=== PATIENT | female | born 1965 | race African-American/Black ===

== ENCOUNTER 2023-05-16 14:53 | Outpatient (CLI) | payer BC, SELFPAY ==
[2023-05-16 20:13] LABS: Hematocrit 38.8 % (37.0-47.0); Hemoglobin 12.5 g/dL (12.0-15.0); Mean Corpuscular HGB Conc 32.2 g/dl (32-36); Mean Corpuscular Hemoglobin 29.5 pg (26-34); Mean Corpuscular Volume 91.5 fl (80-100); Mean Platelet Volume 9.7 fl (7.4-10.4); Platelet Count Result 323 k/mm3 (150-375); Red Blood Count 4.24 M/mm3 (4.2-5.4); Red Cell Distribution Width 13.8 % (11.5-14.5); White Blood Count 6.4 K/mm3 (4.5-10.0)
[2023-05-16 20:33] LABS: Alanine Aminotransferase 22 U/L (6-35); Albumin Level 4.4 g/dL (3.5-5.1); Alkaline Phosphatase 84 U/L (38-126); Anion Gap 7 mmol/L (8-16); Aspartate Amino Transferase 27 U/L (14-36); Bilirubin,Total 0.8 mg/dL (0.2-1.3); Blood Urea Nitrogen 10 mg/dL (7-17); Calcium 9.5 mg/dL (8.4-10.2); Carbon Dioxide 28 mmol/L (22-30); Chloride 103 mmol/L (98-107); Cholesterol 276 mg/dL (0-200); Estimated Glomerular Filt Rate > 60; Glucose 85 mg/dL (65-110); HDL Direct 55 mg/dL; Potassium 4.2 mmol/L (3.4-5.0); Sodium 138 mmol/L (137-145); Triglycerides 84 mg/dL (<150)
[2023-05-16 20:43] LABS: LDL Cholesterol Direct 163 mg/dL
[2023-05-16 22:52] LABS: Hemoglobin A1C 5.7 % (<5.7)
[2023-05-19 18:48] LABS: H pylori, Urea Breath DETECTED (NOT DETECTED)
== END 2023-05-16 14:54 | disposition home or self-care (01) ==
LOC: ANHBWCLAB 14:59
PROVIDERS: PCP Family Medicine; Visit Provider Family Medicine
DX: D64.9 Anemia, unspecified (principal); E78.5 Hyperlipidemia, unspecified; G47.30 Sleep apnea, unspecified; Z98.890 Other specified postprocedural states; A04.8 Other specified bacterial intestinal infections
CPT/HCPCS: 36415; 80053; 80061; 83013; 83036; 85027

== ENCOUNTER 2023-08-18 12:03 | Outpatient (CLI) | payer BC, SELFPAY ==
[2023-08-18 18:56] LABS: Alanine Aminotransferase 25 U/L (6-35); Albumin Level 4.2 g/dL (3.5-5.1); Alkaline Phosphatase 83 U/L (38-126); Anion Gap 3 mmol/L (8-16); Aspartate Amino Transferase 45 U/L (14-36); Bilirubin,Total 0.6 mg/dL (0.2-1.3); Blood Urea Nitrogen 11 mg/dL (7-17); Calcium 9.8 mg/dL (8.4-10.2); Carbon Dioxide 32 mmol/L (22-30); Chloride 102 mmol/L (98-107); Estimated Glomerular Filt Rate > 60; Glucose 93 mg/dL (65-110); Potassium 4.2 mmol/L (3.4-5.0); Sodium 137 mmol/L (137-145)
[2023-08-18 19:17] LABS: Hematocrit 43.4 % (37.0-47.0); Hemoglobin 13.4 g/dL (12.0-15.0); Mean Corpuscular HGB Conc 30.9 g/dl (32-36); Mean Corpuscular Hemoglobin 29.2 pg (26-34); Mean Corpuscular Volume 94.6 fl (80-100); Mean Platelet Volume 9.7 fl (7.4-10.4); Platelet Count Result 296 k/mm3 (150-375); Red Blood Count 4.59 M/mm3 (4.2-5.4); Red Cell Distribution Width 13.7 % (11.5-14.5); White Blood Count 5.4 K/mm3 (4.5-10.0)
[2023-08-18 19:21] LABS: Appearance Urine Clear (Clear); Bilirubin Urine Negative (Negative); Blood Urine Negative (Negative); Color Urine Yellow (Yellow); Glucose Urine UA Negative (Negative); Ketones Urine Negative (Negative); Leukocyte Esterase Ur Negative LEU/UL (NEGATIVE); Nitrate Urine Negative (Negative); Protein Urine Negative (Negative); Specific Grav Ur 1.014 (1.001-1.035); Urobilinogen Urine 0.2 mg/dL (<2.0)
[2023-08-18 19:25] LABS: Add Urine Microscopic? NO
[2023-08-18 19:29] LABS: Hemoglobin A1C 6.1 % (<5.7)
== END 2023-08-18 12:04 | disposition home or self-care (01) ==
LOC: ANHBWCLAB 12:05
PROVIDERS: PCP Family Medicine; Visit Provider Family Medicine
DX: R73.03 Prediabetes (principal); D64.9 Anemia, unspecified; E66.9 Obesity, unspecified; E78.5 Hyperlipidemia, unspecified; G89.29 Other chronic pain; G47.30 Sleep apnea, unspecified
CPT/HCPCS: 36415; 80053; 81003; 83036; 84439; 84443; 85027

== ENCOUNTER 2024-04-02 09:58 | Outpatient (CLI) | payer BC, SELFPAY ==
[2024-04-02 18:24] LABS: Hematocrit 41.9 % (37.0-47.0); Hemoglobin 13.4 g/dL (12.0-15.0); Mean Corpuscular Hemoglobin 30.5 pg (26-34); Mean Corpuscular Volume 95.2 fl (80-100); Mean Platelet Volume 9.8 fl (7.4-10.4); Platelet Count Result 284 k/mm3 (150-375); White Blood Count 4.8 K/mm3 (4.5-10.0)
[2024-04-02 19:01] LABS: Alanine Aminotransferase 19 U/L (6-35); Albumin Level 4.5 g/dL (3.5-5.1); Alkaline Phosphatase 73 U/L (38-126); Anion Gap 11 mmol/L (4-12); Aspartate Amino Transferase 58 U/L (14-36); Bilirubin,Total 0.8 mg/dL (0.2-1.3); Blood Urea Nitrogen 15 mg/dL (7-17); Calcium 9.7 mg/dL (8.4-10.2); Carbon Dioxide 25 mmol/L (22-30); Chloride 103 mmol/L (98-107); Estimated Glomerular Filt Rate > 60; Glucose 84 mg/dL (65-110); Potassium 4.4 mmol/L (3.4-5.0); Sodium 139 mmol/L (137-145)
[2024-04-02 19:45] LABS: Vitamin D 25 Hydroxy 25.3 ng/mL
== END 2024-04-02 09:59 | disposition home or self-care (01) ==
PROVIDERS: PCP Family Medicine; Visit Provider Family Medicine
DX: D64.9 Anemia, unspecified (principal); E66.9 Obesity, unspecified; E78.5 Hyperlipidemia, unspecified; G47.30 Sleep apnea, unspecified; G47.33 Obstructive sleep apnea (adult) (pediatric); G89.29 Other chronic pain; R73.03 Prediabetes
CPT/HCPCS: 36415; 80053; 82306; 85027

== ENCOUNTER 2024-04-10 09:41 | Outpatient (CLI) | payer BC, SELFPAY ==
--- NOTE | ~2024-04-10 | US_ITS ---
EXAMINATION: US abdomen limited DATE: 04/10/2024 09:58 INDICATION: Abnormal levels of liver transaminases. TECHNIQUE: Multiple grayscale and Doppler ultrasound images of the abdomen were obtained. COMPARISON: None FINDINGS: The visualized portions of the head, body, and tail of the pancreas are normal. The liver i s normal without focal lesion. No liver surface nodularity. There is normal flow in main portal vein. The gallbladder is normal in size. No gallstones or gallbladder wall thickening. There is no sonogra phic Shi's sign. The common duct is normal and measures 3 mm. IMPRESSION: 1. Normal right upper quadrant ultrasound. Reviewed, dictated and finalized at location A.
== END 2024-04-10 09:42 | disposition home or self-care (01) ==
LOC: MICIMG 09:41
PROVIDERS: PCP Family Medicine; Visit Provider Family Medicine
DX: R74.01 Elevation of levels of liver transaminase levels (principal)
CPT/HCPCS: 76705

== ENCOUNTER 2024-11-22 11:35 | Outpatient (CLI) | payer BC, SELFPAY ==
--- OUTSIDE RECORDS SUMMARY | 2024-11-22 11:38 | XMS_ITS | Encounter Summary ---
Author Organization [facility] Address [address] [place] [address] Phone Care Team Providers Care Corporate Administrator Name Role Phone Monae Lee MD Unavailable [phone] Chaim Colon MD Primary Care Provider + [phone] Matthew Brown DPM Unavailable [phone] Lauren Ramey MD Unavailable Unavail able Mahesh Hutchins MD Primary Care Provider [phone] Provider, None Primary Care Provider Unavailabl e Tiff Garcia MD Primary Care Provide r Reason for Visit * Reason Onset Date Comments Letter for School/Work 02/24/2021 Encounter Details Date Type Department Care Team (Late st Contact Info) Description 02/24/2021 [facility]ill [facility] [address]2 [place] [address] Chaim Colon MD #[address] [address] Letter for School/Work Social History Tobacco Use Types Packs/Day Years Used Date Smoking Tobacco: Never Smokeless Tobacco: Never Alcohol Use Standard Drinks/Week Comments No 0 (1 standard drink = 0.6 oz pur e alcohol) PHQ-2 Answer Date Recorded Total Score - Questions 1-9 0 /0 02/2021 Sexually Active Control Partners Comments Never Male Comments No Sex and Gender Information Value Date Recorded Sex Assigned at Not on file Legal Sex Female 11:11 PM CDT Gender Identity Not on file Sexual Orientation Not on file 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 documented as of this encounter Care Teams Corporate Administrator Relationship Specialty Start Date End Date Chaim Colon MD #[address] [address] PCP - General Family Medicine 04/27/16 04/20/21 Mahesh Hutchins MD [address] [place] [address] PCP - General Internal Medicine 04/24/21 06/11/21 Provider, None [place] PCP - General 06/12/21 10/27/21 Tiff Garcia MD [address] [place] [address] PCP - General Family Medicine 10/28/21 Monae Lee MD Consulting Physician Urology 10/06/15 Matthew Brown DPM [address] [place] [address] Consulting Physician Podiatry 10/25/16 Lauren Ramey MD #[address] [address] Obstetrics & Gynecology 04/09/19 documented as of this encounter
--- OUTSIDE RECORDS SUMMARY | 2024-11-22 11:38 | XMS_ITS ---
Author Organization [facility] ([address]) Address [address] [place] [address] Care Team Providers Care Bias Machine Operator Name Role Phone AnthonyYossi Unavailable [phone] REASON FOR VISIT [facility] Weight Loss, on tirzepatide, no side effects, reports decreased appetite suppression,meeting caloric, protein, and fluid intake requirements, Desired weight loss: 75 lbs, -2.0 lbs lbs since last visit, -26.0 lbs total, No history MTC or MEN2 or pancreatitis, Concerned about future DMand OA, Abnormal sleep schedule, concerned about apnea Encounters Encounter Location Date Provider Diagnosis [facility] ([address]) [address] [place] [address] 08/27/2024 Yossi Cruz Morbid (severe) obesity due to excess calories E66.01 ; Chronic fatigue, unspecified R53.82 ; Other fatigue R53.83 and Other malaise R53.81 Assessments Encounter Date Diagnosis (ICD Code) Assessment Notes Treatment Notes Treatment Clinical Notes Section Notes 08/27/2024 Morbid (severe) obesity due to excess calories (ICD-10 - E66.01) Tirzepatide as below and BHRT packet provided. Start Probiotics given prior H. pylori and reflux. Patient needs monthly InBody Assessments to continue program. Patient may have them performed outside, but bring in to scan into the system. 08/27/2024 Chronic fatigue, unspecified (ICD-10 - R53.82) 08/27/2024 Other fatigue (ICD-10 - R53.83) 08/27/2024 Other malaise (ICD-10 - R53.81) Plan Of Treatment Treatment Notes Assessment Notes Morbid (severe) obesity due to excess calories Tirzepatide as below and BHRT packet provided. Start Probiotics given prior H. pylori and reflux. Patient needs monthly InBody Assessments to continue program. Patient may have them performed outside, but bring in to scan into the system. Next Appt Details Follow Up: 1 Week, Reason: G LP-1 Agonist Administration Progress Notes * Wendi ELIZABETHDOB:1965 (59 yo F)Acc No.[id number]:08/27/2024 Weight Loss Patient: Wendi MALIK Provider: Barb Cruz MD :1965 A ge:59 Y S ex:Female Date:08/27/2024 Address:[address] [place] [address] Subjective: * Chief Complaints: * 1 . [facility] Weight Loss, on tirzepatide, no side effects, reports decreased appetite suppression, meeting caloric, protein, and fluid intake requirements. 2. Desired weight loss: 75 lbs, -2.0 lbs lbs since last visit, -26.0 lbs total. 3. No history MTC or MEN2 or pancreatitis. 4. Concerned about future DM and OA. 5. Abnormal sleep schedule, concerned about apnea. * Medical History: Objective: * Vitals: Assessment: * Assessment: 1. M orbid (severe) obesity due to excess calories - E66.01 (Primary) 2 . C hronic fatigue, unspecified - R53.82 3 . O ther fatigue - R53.83 ?4. O ther malaise - R53.81 Plan: * Treatment: * Follow Up: 1 Week (Reason: GLP-1 Agonist Administration) * Billing Information: * Visit Code: * Procedure Codes: 59804 Quell - Weekly (tirzepatide) Tier 2. * Electronic signature of Charu Cruz MD, FAAAAI on 11/22/2024 at 11:37 AM CDT Sign off status: Pending * Provider: Barb Cruz MD Date: 0 08/27/2024 Generated for Genevieve kenyon/Rodriguez/Chantelitting on: 0 11/22/2024 11:37 AM CDT
--- OUTSIDE RECORDS SUMMARY | 2024-11-22 11:38 | XMS_ITS | Encounter Summary ---
Author Organization [facility] Address [address] [place] [address] Phone Care Team Providers Care Mason Foreman/Superintendant Name Role Phone Monae Lee MD Unavailable [phone] Chaim Colon MD Primary Care Provider [phone] Matthew Brown DPM Unavailable [phone] Lauren Ramey MD Unavailable Unavail able Mahesh Hutchins MD Primary Care Provider [phone] Provider, None Primary Care Provider Unavailabl e Tiff Garcia MD Primary Care Provide r Reason for Visit * Reason Comments Medication Refill Encounter Details Date Type Department Care Team (Late st Contact Info) Description 11/28/2019 Refill [facility] - Family Medicine [facility] [address] [place] [address] Chaim Colon MD #[address] [address] Medication Refill Social History Tobacco Use Types Packs/Day Years Used Date Smoking Tobacco: Never Smokeless Tobacco: Never Alcohol Use Standard Drinks/Week Comments No 0 (1 standard drink = 0.6 oz pur e alcohol) Sexually Active Control Partners Comments Never Male [...] encounter Miscellaneous Notes * Telephone Encounter - Kailyn James RN - 11/28/2019 12:01 PM CDT Requested Prescriptions Pending Prescriptions Disp Refills zolpidem (AMBIEN) 5 MG Tablet [Pharmacy Med Name: ZOLPIDEM TARTRATE 5 MG TABLET] 30 Tab 0 Sig: TAKE 1 TABLET BY MOUTH EVERY DAY AT BEDTIME NEEDED FOR SLEEP Not Delegated - Psychiatry: Anxiolytics/Hypnotics Failed - 11/28/2019 11:54 AM Failed - This refill cannot be delegated Passed - Valid encounter within last 6 months Past Office Visits Recent Outpatient Visits 3 months ago Anxiety [facility] Chaim Colon MD 6 months ago Avulsion of toenail of left foot [facility] Mahesh Bains APN, CNP 7 months ago Chronic pain syndrome [facility] Mahesh Bledsoe APN, CNP 1 year ago Insomnia, unspecified type [facility]aim [facility]ieta MD 1 year ago Encounter for immunization [facility] Chaim Mendieta MD Upcoming Appointments Future Appointments In 2 months Chaim Colon MD [facility], [facility] documented in this encounter Plan of Treatment Not on file documented as of this encounter Visit Diagnoses Diagnosis Insomnia, unspecified type documented in this encounter Additional Health Concerns Assessment Noted Time PHQ-9 Depression Total Score: 0 09/08/19 17 8:00 AM 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 documented as of this encounter Care Teams Mason Foreman/Superintendant Relationship Specialty Start Date End Date Chaim Colon MD [address] [place] [address] PCP - General Family Medicine 04/27/16 04/20/21 Mahesh Hutchins MD [address] [place] [address] PCP - General Internal Medicine 04/24/21 06/11/21 Provider, [facility] PCP - General 06/12/21 10/27/21 Tiff Garcia MD [address] [place] [address] [address] PCP - General Family Medicine 10/28/21 Monae Lee MD Consulting Physician Urology 10/06/15 Matthew Brown DPM [address] [address] Consulting Physician Podiatry 10/25/16 Lauren Ramey MD [address] [address] Obstetrics & Gynecology 04/09/19 documented as of this encounter
--- OUTSIDE RECORDS SUMMARY | 2024-11-22 11:38 | XMS_ITS | Encounter Summary ---
Author Organization [facility] Address [address] [place] [address] Phone Care Team Providers Care Cyber Intelligence Analyst Name Role Phone Monae Lee MD Unavailable [phone] Chaim Colon MD Primary Care Provider [phone] Matthew Brown DPM Unavailable [phone] Lauren Ramey MD Unavailable Unavail able Mahesh Hutchins MD Primary Care Provider [phone] Provider, None Primary Care Provider Unavailabl e Tiff Garcia MD Primary Care Provide r Reason for Visit * Reason Comments Medication Refill Encounter Details Date Type Department Care Team (Late st Contact Info) Description 04/25/2020 Refill [facility] [address] [place] [address] Chaim Colon MD #[address] [address] Medication Refill Social History Tobacco Use Types Packs/Day Years Used Date Smoking Tobacco: Never Smokeless Tobacco: Never Alcohol Use Standard Drinks/Week Comments No 0 (1 standard drink = 0.6 oz pur e alcohol) PHQ-2 Answer Date Recorded Total Score - Questions 1-9 0 02/16 Sexually Active Control Partners Comments Never Male Comments No Sex and Gender Information Value Date Recorded Sex Assigned at Not on file Legal Sex Female 11:11 PM CDT Gender Identity Not on file Sexual Orientation Not on file 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 No / Unsure 04/09/2020 1:28 PM CDT documented as of this encounter Miscellaneous Notes * Telephone Encounter - Candy Chowdary RN - 04/28/2020 8:19 AM CDT PARoxetine (PAXIL) 20 MG Tablet 90 Tab 1 01/23/2020 Sig - Route: Take 1 Tab by mouth daily. - Oral Patient not taking: Reported on 04/09/2020 Sent to pharmacy as: PARoxetine HCl 20 MG Oral Tablet (PAXIL) Class: E Prescribe E-Prescribing Status: Receipt confirmed by pharmacy (01/23/2020 ??9:20 PM CDT) Requested Prescriptions Pending Prescriptions Disp Refills ??? PARoxetine (PAXIL) 20 MG Tablet [Pharmacy Med Name: PAROXETINE HCL 20 MG TABLET] 90 Tab 1 Sig: TAKE 1 TABLET BY MOUTH EVERY DAY Pharmacy verified is the same one as is requesting renewal. documented in this encounter Plan of Treatment Not on file documented as of this encounter Visit Diagnoses Not on filedocumented in this encounter Additional Health Concerns Assessment Noted Time PHQ-9 Depression Total Score: 0 03/07/20 20 8:00 AM CDT documented as of this encounter Care Teams Cyber Intelligence Analyst Relationship Specialty Start Date End Date Chaim Colon MD #[address] [address] PCP - General Family Medicine 04/27/16 04/20/21 Mahesh Hutchins MD [address] [place] [address] PCP - General Internal Medicine 04/24/21 06/11/21 Provider, None [place] PCP - General 06/12/21 10/27/21 Tiff Garcia MD 2 [facility] [address] [address] PCP - General Family Medicine 10/28/21 Monae Lee MD Consulting Physician Urology 10/06/15 Matthew Brown DPM [address] [facility] [address] [place] [address] Consulting Physician Podiatry 10/25/16 Lauren Ramey MD [address] [address] Obstetrics & Gynecology 04/09/19 documented as of this encounter
--- OUTSIDE RECORDS SUMMARY | 2024-11-22 11:38 | XMS_ITS | Encounter Summary ---
Author Organization [facility] Address [address] [place] [address] Phone Care Team Providers Care Communications Maintainer Name Role Phone Monae Lee MD Unavailable [phone] Chaim Colon MD Primary Care Provider [phone] Matthew Brown DPM Unavailable [phone] Lauren Ramey MD Unavailable Unavail able Mahesh Hutchins MD Primary Care Provider [phone] Provider, None Primary Care Provider Unavailabl e Tiff Garcia MD Primary Care Provide r Reason for Visit * Reason Comments Medication Refill Encounter Details Date Type Department Care Team (Late st Contact Info) Description 02/19/2020 Refill [facility] - Family Medicine [facility] #2 [place] [address] Chaim Colon MD #[address] [address] Medication Refill Social History Tobacco Use Types [...] have Coronavirus / COVID-19? No / Unsure 01/22/2020 8:18 AM CDT documented as of this encounter Miscellaneous Notes * Telephone Encounter - Kaylee Moreno RN - 02/22/2020 6:26 PM CDT Requested Prescriptions Pending Prescriptions Disp Refills zolpidem (AMBIEN) 5 MG Tablet [Pharmacy Med Name: ZOLPIDEM TARTRATE 5 MG TABLET] 30 Tab 0 Sig: TAKE 1 TAB BY MOUTH NIGHTLY NEEDED Not Delegated - Psychiatry: Anxiolytics/Hypnotics Failed - 02/19/2020 10:10 PM Failed - This refill cannot be delegated Passed - Valid encounter within last 6 months Past Office Visits Recent Outpatient Visits 1 month ago Hyperlipidemia, unspecified hyperlipidemia type [facility] Chaim Colon MD 5 months ago Anxiety [facility] Chaim Colon MD 8 months ago Avulsion of toenail of left foot [facility] Mahesh Bains APN, DEMOLITION WORKER 10 months ago Chronic pain syndrome [facility] Mahesh Bains APN, KIAH 1 year ago Insomnia, unspecified type [facility] Chaim Colon MD Upcoming Appointments Future Appointments In 2 months Chaim Colon MD [facility], [facility]AREG[facility] - Recent and Past Visits Recent Visits Date Type Provider Dept 01/22/20 Office Visit Chaim Colon MD [facility] 08/28/19 Office Visit Chaim Colon MD [facility] 05/29/19 Office Visit Mahesh Bains APN, KIAH [facility] 04/09/19 Office Visit Mahesh Bains POSTING MACHINE OPERATOR, DEMOLITION WORKER [facility] Showing recent visits within past 460 days with a meds authorizing provider and meeting all other requirements Future Appointments Date Type Provider Dept 04/29/20 Appointment Chaim Colon MD [facility] Showing future appointments within next 90 days with a meds authorizing provider and meeting all other requirements documented in this encounter Plan of Treatment Not on file documented as of this encounter Visit Diagnoses Diagnosis Insomnia, unspecified type documented in this encounter Additional Health Concerns Assessment Noted Time PHQ-9 Depression Total Score: 0 09/08/19 17 8:00 AM 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 OFFICER documented as of this encounter Care Teams Communications Maintainer Relationship Specialty Start Date End Date Chaim Colon MD #[address] [address] PCP - General Family Medicine 04/27/16 04/20/21 Mahesh Hutchins MD [address] [place] [address] PCP - General Internal Medicine 04/24/21 06/11/21 Provider, None [place] PCP - General 06/12/21 10/27/21 Tiff Garcia MD [address] [place] [place] [address] [facility] [address] [place] [address] PCP - General Family Medicine 10/28/21 Monae Lee MD Consulting Physician Urology 10/06/15 Matthew Brown DPM #[address] [facility] [address] [address] Consulting Physician Podiatry 10/25/16 Lauren Ramey MD #2 [place] [address] Obstetrics & Gynecology 04/09/19 documented as of this encounter
--- OUTSIDE RECORDS SUMMARY | 2024-11-22 11:38 | XMS_ITS | Encounter Summary ---
Author Organization [facility] Address [address] [facility] [place] [address] Phone Care Team Providers Care Dulite Machine Bluer Name Role Phone Monae Lee MD Unavailable [phone] Chaim Colon MD Primary Care Provider [phone] Matthew Brown DPM Unavailable [phone] Lauren Ramey MD Unavailable Unavail able Mahesh Hutchins MD Primary Care Provider [phone] Provider, None Primary Care Provider Unavailabl e Tiff Garcia MD Primary Care Provide r Reason for Visit * Reason Comments Medication Refill Encounter Details Date Type Department Care Team (Late st Contact Info) Description 06/30/2020 Refill [facility] #2 [place] [address] Chaim Colon MD #[address] [address] Medication Refill Social History Tobacco Use Types [...] have Coronavirus / COVID-19? No / Unsure 07/03/2020 9:33 AM CELLOPHANE PRESS OPERATOR documented as of this encounter Miscellaneous Notes * Telephone Encounter - Danae Singh RN - 07/01/2020 11:25 AM CST Medication failed the protocol, provider to review and approve the medication order if appropriate. Requested Prescriptions Pending Prescriptions Disp Refills PARoxetine (PAXIL) 20 MG Tablet [Pharmacy Med Name: PAROXETINE HCL 20 MG TABLET] 90 Tab 1 Sig: TAKE 1 TABLET BY MOUTH EVERY DAY Not Delegated - Psychiatry: Antidepressants Failed - 06/30/2020 4:25 PM Failed - This refill cannot be delegated Passed - Valid encounter within last 12 months Past Office Visits Recent Outpatient Visits 1 week ago Left flank pain [facility] - Chaim Rudolph MD 1 month ago Encounter for screening mammogram for breast cancer [facility] - Chaim Rudolph MD 2 months ago Bleeding hemorrhoids [facility] Chaim Rudolph MD 3 months ago Allergic reaction, initial encounter [facility] Alli Bloom MD 5 months ago Hyperlipidemia, unspecified hyperlipidemia type [facility] Chaim Rudolph MD Upcoming Appointments Future Appointments In 1 month Chaim Colon MD [facility] - Recent and Past Visits Recent Visits Date Type Provider Dept 06/24/20 Office Visit Chaim Colon MD [facility] 05/22/20 Office Visit Chaim Colon MD [facility] 04/03/20 Office Visit Chaim Colon MD [facility] 03/07/20 Office Visit Alli Joya MD [facility] 01/22/20 Office Visit Chaim Colon MD [facility] 08/28/19 Office Visit Chaim Colon MD [facility] 05/29/19 Office Visit Mahesh Bains APN, K[facility] 04/09/19 Office Visit Mahesh Bains APN, KIAH [facility] Showing recent visits within past 460 days with a meds authorizing provider and meeting all other requirements Future Appointments Date Type Provider Dept 08/25/20 Appointment Chaim Colon MD [facility] Showing future appointments within next 90 days with a meds authorizing provider and meeting all other requirements OPHANE PRESS OPERATOR documented in this encounter Plan of Treatment Not on file documented as of this encounter Visit Diagnoses Not on filedocumented in this encounter Additional Health Concerns Assessment Noted Time PHQ-9 Depression Total Score: 0 03/07/20 20 8:00 AM CDT documented as of this encounter Care Teams Dulite Machine Bluer Relationship Specialty Start Date End Date Chaim Colon MD #2 [facility] JOHAN [facility] [place] [address] PCP - General Family Medicine 04/27/16 04/20/21 Mahesh Hutchins MD [address] [place] [address] PCP - General Internal Medicine 04/24/21 06/11/21 Provider, None [place] PCP - General 06/12/21 10/27/21 Tiff Garcia MD [address] [place] [address] J[address] [facility] [place] [address] PCP - General Family Medicine 10/28/21 Monae Lee MD Consulting Physician Urology 10/06/15 Matthew Brown DPM #[address] [address] Consulting Physician Podiatry 10/25/16 Lauren Ramey MD #[address] [address] Obstetrics & Gynecology 04/09/19 documented as of this encounter
--- OUTSIDE RECORDS SUMMARY | 2024-11-22 11:38 | XMS_ITS | Encounter Summary ---
Author Organization [facility] Address [address] [place] [address] Phone Care Team Providers Care Nuclear Spectroscopist Name Role Phone Chaim Colon MD Primary Care Provider [phone] Watson Ortiz MD Unavailable Tiff Garcia MD Primary Care Provide r Encounter Details Date Type Department Care Team (Late st Contact Info) Description 04/01/2021 Orders Only [facility] [address] [place] [address] Scanning, Provider Social History Tobacco Use Types Packs/Day Years Used Date Smoking Tobacco: Never AUDIT-C Answer Date Recorded Q1: How often do you have a drink containing alc ohol? 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 Gender Identity Not on file Sexual Orientation Not on file documented as of this encounter Plan of Treatment Not on file documented as of this encounter Procedures Procedure Name Priority Date/Time Associated Diagnosis Comments SCAN - RADIOLOGY/IMAGING 04/01/2021 documented in this encounter Results * SCAN - RADIOLOGY/IMAGING (04/01/2021) Anatomical Region Laterality Modality Other us Provider Scanning Final Result documented in this encounter Visit Diagnoses Not on filedocumented in this encounter Care Teams Nuclear Spectroscopist Relationship Specialty Start Date End Date Chaim Colon MD [address] [facility] [address] [place] [address] PCP - General 11/04/20 05/13/21 Tiff Garcia MD 2 [facility] [address] [place] [address] PCP - General Family Medicine 05/14/21 Watson Ortiz MD [address] [facility] [address] [place] [address] Consulting Physician Gastroenterology 01/01/21 documented as of this encounter
--- OUTSIDE RECORDS SUMMARY | 2024-11-22 11:38 | XMS_ITS | Encounter Summary ---
Author Organization [facility] Address [address] [facility] [place] [address] Phone Care Team Providers Care Administrative Medical Director Name Role Phone Monae Lee MD Unavailable [phone] Chaim Colon MD Primary Care Provider [phone] Matthew Brown DPM Unavailable [phone] Lauren Ramey MD Unavailable Unavail able Mahesh Hutchins MD Primary Care Provider [phone] Provider, None Primary Care Provider Unavailabl e Tiff Garcia MD Primary Care Provide r Reason for Visit * Reason Comments Medication Refill Encounter Details Date Type Department Care Team (Late st Contact Info) Description 03/21/2021 Refill [facility] - Family Medicine [facility] [address] [place] [address] Chaim Colon MD [address] [address] Medication Refill Social History Tobacco Use Types Packs/Day Years Used Date Smoking Tobacco: Never Smokeless Tobacco: Never Alcohol Use Standard Drinks/Week Comments No 0 (1 standard drink = 0.6 oz pur e alcohol) PHQ-2 Answer Date Recorded Total Score - Questions 1-9 0 0 02/2021 Sexually Active Control Partners Comments Never [...] have Coronavirus / COVID-19? No / Unsure 03/13/2021 8:18 AM CDT documented as of this encounter Miscellaneous Notes * Telephone Encounter - Danae Singh RN - 03/24/2021 1:27 PM CDT Name from pharmacy: PAROXETINE HCL 20 MG TABLET Will file in chart as: PARoxetine (PAXIL) 20 MG Tablet The original prescription was discontinued on 07/25/2020 by Emmett Ballard DO documented in this encounter Plan of Treatment Not on file documented as of this encounter Visit Diagnoses Not on filedocumented in this encounter Additional Health Concerns Assessment Noted Time PHQ-9 Depression Total Score: 0 08/25/19 8:41 AM LOCATION DIRECTOR documented as of this encounter Care Teams Administrative Medical Director Relationship Specialty Start Date End Date Chaim Colon MD #2 [facility] [address] [place] [address] PCP - General Family Medicine 04/27/16 04/20/21 Mahesh Hutchins MD [address] [place] [address] PCP - General Internal Medicine 04/24/21 06/11/21 Provider, None [place] PCP - General 06/12/21 10/27/21 Tiff Garcia MD [address] [place] [address] [address] [place] [address] PCP - General Family Medicine 10/28/21 Monae Lee MD Consulting Physician Urology 10/06/15 Matthew Brown DPM [address] [address] Consulting Physician Podiatry 10/25/16 Lauren Ramey MD #[address] [address] Obstetrics & Gynecology 04/09/19 documented as of this encounter
--- OUTSIDE RECORDS SUMMARY | 2024-11-22 11:38 | XMS_ITS ---
Author Organization [facility] [place] ([address]) Address [address] [place] [address] Care Team Providers Care Cupola Patcher Name Role Phone AnthonyYossi Unavailable [phone] REASON FOR VISIT [facility] Weight Loss, on tirzepatide, no side effects, reports decreased appetite suppression,meeting caloric, protein, and fluid intake requirements, Desired weight loss: 75 lbs, -2.0 lbs lbs since last visit, -26.0 lbs total, No history MTC or MEN2 or pancreatitis, Concerned about future DMand OA, Abnormal sleep schedule, concerned about apnea Encounters Encounter Location Date Provider Diagnosis [facility] [place] ([address]) [address] [place] [address] 07/23/2024 Yossi Cruz Morbid (severe) obesity due to excess calories E66.01 ; Chronic fatigue, unspecified R53.82 ; Other fatigue R53.83 and Other malaise R53.81 Assessments Encounter Date Diagnosis (ICD Code) Assessment Notes Treatment Notes Treatment Clinical Notes Section Notes 07/23/2024 Morbid (severe) obesity due to excess calories (ICD-10 - E66.01) Tirzepatide as below and BHRT packet provided. Start Probiotics given prior H. pylori and reflux. Patient needs monthly InBody Assessments to continue program. Patient may have them performed outside, but bring in to scan into the system. 07/23/2024 Chronic fatigue, unspecified (ICD-10 - R53.82) 07/23/2024 Other fatigue (ICD-10 - R53.83) 07/23/2024 Other malaise (ICD-10 - R53.81) Plan Of [...] 1 Week, Reason: G LP-1 Agonist Administration Procedure Notes * Category Sub-Category Detail Notes Quell: Weight Management tirzepatide Indication: weig ht loss Concentration: 10 mg/mL Volume Administered: 0.55 mL Dose Administered: 5.5 mg Route: SQ Location: Left abdomen Frequency: weekly Lot Number/Expiration: Medication Source: Borqs Adverse Reaction: None Progress Notes * Wendi ELIZABETHDOB:1965 (59 yo F)Acc No.[id number]:07/23/2024 Weight Loss Patient: Wendi MALIK Provider: Barb Cruz MD :1965 A ge:59 Y S ex:Female Date:07/23/2024 Address:[address] [place] [address] Subjective: * Chief Complaints: * 1 . [...] malaise - R53.81 Plan: * Treatment: * Procedures: Q uell: Weight Management: tirzepatide I ndication w eight loss C oncentration 1 0 mg/mL V olume Administered 0 .55 mL D ose Administered 5 .5 mg R oute S Q L ocation L eft abdomen F requency w eekly L ot Number/Expiration 1 M edication Source H [facility] A dverse Reaction N one * Follow Up: 1 Week (Reason: GLP-1 Agonist Administration) * Billing Information: * Visit Code: * Procedure Codes: 56541 Quell - Weekly (tirzepatide) Tier 2. * Electronic signature of Charu Cruz MD, FAAAAI on 11/22/2024 at 11:38 AM CDT Sign off status: Pending * Provider: Barb Cruz MD Date: 0 07/23/2024 Generated for Genevieve kenyon/Rodriguez/Nida on: 0 11/22/2024 11:38 AM CDT
--- OUTSIDE RECORDS SUMMARY | 2024-11-22 11:38 | XMS_ITS | Patient Health Record ---
Author Organization [facility] [employer] [place] ([address]) Address [address] [place] [address] Care Team Providers Care Homebound Teacher Name Role Phone Yossi Cruz Unavailable [phone] Reason For Referral No Information Problems Problem Type SNOMED Code ICD Code Onset Dates Problem Status W/U Status Risk Notes Problem Morbid obesity (disorder) (455267487) Morbid (severe) obesity due to excess calories (E66.01) Active confirmed Problem Chronic fatigue syndrome (disorder) (01470437) Chronic fatigue, unspecified (R53.82) Active confirmed Vital Signs Height 61 in 06/04/2024 Weight 198 lbs 06/04/2024 BMI 37.41 kg/m2 06/04/2024 Encounters Encounter Location Date Provider Diagnosis [facility] [employer] [place] ([address]) [address] [place] [address] 12/13/2023 Yossi Cruz Morbid (severe) obesity due to excess calories E66.01 ; Chronic fatigue, unspecified R53.82 ; Other fatigue R53.83 and Other malaise R53.81 [facility] [place] ([address]) [address] [place] [address] 12/27/2023 Yossi Cruz Morbid (severe) obesity due to excess calories E66.01 ; Chronic fatigue, unspecified R53.82 ; Other fatigue R53.83 and Other malaise R53.81 [facility] [employer] [facility] [employer] [place] ([address]) [address] [place] [address] 01/02/2024 Yossi Cruz Morbid (severe) obesity due to excess calories E66.01 ; Chronic fatigue, unspecified R53.82 ; Other fatigue R53.83 and Other malaise R53.81 [facility] ([address]) [address] [place] [address] 01/17/2024 Yossi Win Morbid (severe) obesity due to excess calories E66.01 ; Chronic fatigue, unspecified R53.82 ; Other fatigue R53.83 and Other malaise R53.81 [facility] ([address]) [address] [place] [address] 02/14/2024 Yossi Win Morbid (severe) obesity due to excess calories E66.01 ; Chronic fatigue, unspecified R53.82 ; Other fatigue R53.83 and Other malaise R53.81 [facility] ([address]) [address] [place] [address] 02/21/2024 Yossi Win Morbid (severe) obesity due to excess calories E66.01 ; Chronic fatigue, unspecified R53.82 ; Other fatigue R53.83 and Other malaise R53.81 [facility] ([address]) [address] [place] [address] 03/28/2024 Yossi Win Morbid (severe) obesity due to excess calories E66.01 ; Chronic fatigue, unspecified R53.82 ; Other fatigue R53.83 and Other malaise R53.81 [facility] ([address]) [address] [place] [address] 04/10/2024 Yossi Win Morbid (severe) obesity due to excess calories E66.01 ; Chronic fatigue, unspecified R53.82 ; Other fatigue R53.83 and Other malaise R53.81 [facility] ([address]) [address] [place] [address] 04/17/2024 Yossi Win Morbid (severe) obesity due to excess calories E66.01 ; Chronic fatigue, unspecified R53.82 ; Other fatigue R53.83 and Other malaise R53.81 [facility] ([address]) [address] [place] [address] 05/07/2024 Yossi Win Morbid (severe) obesity due to excess calories E66.01 ; Chronic fatigue, unspecified R53.82 ; Other fatigue R53.83 and Other malaise R53.81 [facility] ([address]) [address] [place] [address] 05/21/2024 Yossi Win Morbid (severe) obesity due to excess calories E66.01 ; Chronic fatigue, unspecified R53.82 ; Other fatigue R53.83 and Other malaise R53.81 [facility] ([address]) [address] [place] [address] 06/04/2024 Yossi Win Morbid (severe) obesity due to excess calories E66.01 ; Chronic fatigue, unspecified R53.82 ; Other fatigue R53.83 and Other malaise R53.[address] [address] 11/29/2023 Yossi Win Morbid (severe) obesity due to excess calories E66.01 ; Chronic fatigue, unspecified R53.82 ; Other fatigue R53.83 and Other malaise R53.81 [facility] ([address]) [address] [place] [address] 12/20/2023 Yossi Win Morbid (severe) obesity due to excess calories E66.01 ; Chronic fatigue, unspecified R53.82 ; Other fatigue R53.83 and Other malaise R53.81 [facility] ([address]) [address] [place] [address] 02/07/2024 Yossi Win Morbid (severe) obesity due to excess calories E66.01 ; Chronic fatigue, unspecified R53.82 ; Other fatigue R53.83 and Other malaise R53.81 [facility] ([address]) [address] [place] [address] 03/01/2024 Yossi Win Morbid (severe) obesity due to excess calories E66.01 ; Chronic fatigue, unspecified R53.82 ; Other fatigue R53.83 and Other malaise R53.81 [facility] [place] ([address]) [address] [place] [address] 03/14/2024 Yossi Cruz Morbid (severe) obesity due to excess calories E66.01 ; Chronic fatigue, unspecified R53.82 ; Other fatigue R53.83 and Other malaise R53.81 [facility] [address] [facility] [address] [place] [address] 07/19/2024 Yossi Cruz Assessments Encounter Date Diagnosis (ICD Code) Assessment Notes Treatment Notes Treatment Clinical Notes Section Notes 11/29/2023 Morbid (severe) obesity due to excess calories (ICD-10 - E66.01) Tirzepatide as below and BHRT packet provided. Start Probiotics given prior H. pylori and reflux 11/29/2023 Chronic fatigue, unspecified (ICD-10 - R53.82) 12/13/2023 Morbid (severe) obesity due to excess calories (ICD-10 - E66.01) Tirzepatide as below and BHRT packet provided. Start Probiotics given prior H. pylori and reflux 12/13/2023 Chronic fatigue, unspecified (ICD-10 - R53.82) 12/20/2023 Morbid (severe) obesity due to excess calories (ICD-10 - E66.01) Tirzepatide as below and BHRT packet provided. Start Probiotics given prior H. pylori and reflux 12/20/2023 Chronic fatigue, unspecified (ICD-10 - R53.82) 12/27/2023 Morbid (severe) obesity due to excess calories (ICD-10 - E66.01) Tirzepatide as below and BHRT packet provided. Start Probiotics given prior H. pylori and reflux 12/27/2023 Chronic fatigue, unspecified (ICD-10 - R53.82) 01/17/2024 Morbid (severe) obesity due to excess calories (ICD-10 - E66.01) Tirzepatide as below and BHRT packet provided. Start Probiotics given prior H. pylori and reflux 01/17/2024 Chronic fatigue, unspecified (ICD-10 - R53.82) 02/07/2024 Morbid (severe) obesity due to excess calories (ICD-10 - E66.01) Tirzepatide as below and BHRT packet provided. Start Probiotics given prior H. pylori and reflux 02/07/2024 Chronic fatigue, unspecified (ICD-10 - R53.82) 02/14/2024 Morbid (severe) obesity due to excess calories (ICD-10 - E66.01) Tirzepatide as below and BHRT packet provided. Start Probiotics given prior H. pylori and reflux 02/14/2024 Chronic fatigue, unspecified (ICD-10 - R53.82) 02/21/2024 Morbid (severe) obesity due to excess calories (ICD-10 - E66.01) Tirzepatide as below and BHRT packet provided. Start Probiotics given prior H. pylori and reflux 02/21/2024 Chronic fatigue, unspecified (ICD-10 - R53.82) 03/01/2024 Morbid (severe) obesity due to excess calories (ICD-10 - E66.01) Tirzepatide as below and BHRT packet provided. Start Probiotics given prior H. pylori and reflux 03/01/2024 Chronic fatigue, unspecified (ICD-10 - R53.82) 03/14/2024 Morbid (severe) obesity due to excess calories (ICD-10 - E66.01) Tirzepatide as below and BHRT packet provided. Start Probiotics given prior H. pylori and reflux. Patient needs monthly InBody Assessments to continue program. Patient may have them performed outside, but bring in to scan into the system. 03/14/2024 Chronic fatigue, unspecified (ICD-10 - R53.82) 03/28/2024 Morbid (severe) obesity due to excess calories (ICD-10 - E66.01) Tirzepatide as below and BHRT packet provided. Start Probiotics given prior H. pylori and reflux. Patient needs monthly InBody Assessments to continue program. Patient may have them performed outside, but bring in to scan into the system. 03/28/2024 Chronic fatigue, unspecified (ICD-10 - R53.82) 04/10/2024 Morbid (severe) obesity due to excess calories (ICD-10 - E66.01) Tirzepatide as below and BHRT packet provided. Start Probiotics given prior H. pylori and reflux. Patient needs monthly InBody Assessments to continue program. Patient may have them performed outside, but bring in to scan into the system. 04/10/2024 Chronic fatigue, unspecified (ICD-10 - R53.82) 04/17/2024 Morbid (severe) obesity due to excess calories (ICD-10 - E66.01) Tirzepatide as below and BHRT packet provided. Start Probiotics given prior H. pylori and reflux. Patient needs monthly InBody Assessments to continue program. Patient may have them performed outside, but bring in to scan into the system. 04/17/2024 Chronic fatigue, unspecified (ICD-10 - R53.82) 05/07/2024 Morbid (severe) obesity due to excess calories (ICD-10 - E66.01) Tirzepatide as below and BHRT packet provided. Start Probiotics given prior H. pylori and reflux. Patient needs monthly InBody Assessments to continue program. Patient may have them performed outside, but bring in to scan into the system. 05/07/2024 Chronic fatigue, unspecified (ICD-10 - R53.82) 05/21/2024 Morbid (severe) obesity due to excess calories (ICD-10 - E66.01) Tirzepatide as below and BHRT packet provided. Start Probiotics given prior H. pylori and reflux. Patient needs monthly InBody Assessments to continue program. Patient may have them performed outside, but bring in to scan into the system. 05/21/2024 Chronic fatigue, unspecified (ICD-10 - R53.82) 06/04/2024 Morbid (severe) obesity due to excess calories (ICD-10 - E66.01) Tirzepatide as below and BHRT packet provided. Start Probiotics given prior H. pylori and reflux. Patient needs monthly InBody Assessments to continue program. Patient may have them performed outside, but bring in to scan into the system. 06/04/2024 Chronic fatigue, unspecified (ICD-10 - R53.82) 01/02/2024 Morbid (severe) obesity due to excess calories (ICD-10 - E66.01) Tirzepatide as below and BHRT packet provided. Start Probiotics given prior H. pylori and reflux 01/02/2024 Chronic fatigue, unspecified (ICD-10 - R53.82) 01/02/2024 Other fatigue (ICD-10 - R53.83) 06/04/2024 Other fatigue (ICD-10 - R53.83) 05/21/2024 Other fatigue (ICD-10 - R53.83) 05/07/2024 Other fatigue (ICD-10 - R53.83) 04/17/2024 Other fatigue (ICD-10 - R53.83) 04/10/2024 Other fatigue (ICD-10 - R53.83) 03/28/2024 Other fatigue (ICD-10 - R53.83) 03/14/2024 Other fatigue (ICD-10 - R53.83) 03/01/2024 Other fatigue (ICD-10 - R53.83) 02/21/2024 Other fatigue (ICD-10 - R53.83) 02/14/2024 Other fatigue (ICD-10 - R53.83) 02/07/2024 Other fatigue (ICD-10 - R53.83) 01/17/2024 Other fatigue (ICD-10 - R53.83) 12/27/2023 Other fatigue (ICD-10 - R53.83) 12/20/2023 Other fatigue (ICD-10 - R53.83) 12/13/2023 Other fatigue (ICD-10 - R53.83) 11/29/2023 Other fatigue (ICD-10 - R53.83) 11/29/2023 Other malaise (ICD-10 - R53.81) 12/13/2023 Other malaise (ICD-10 - R53.81) 12/20/2023 Other malaise (ICD-10 - R53.81) 12/27/2023 Other malaise (ICD-10 - R53.81) 01/17/2024 Other malaise (ICD-10 - R53.81) 02/07/2024 Other malaise (ICD-10 - R53.81) 02/14/2024 Other malaise (ICD-10 - R53.81) 02/21/2024 Other malaise (ICD-10 - R53.81) 03/01/2024 Other malaise (ICD-10 - R53.81) 03/14/2024 Other malaise (ICD-10 - R53.81) 03/28/2024 Other malaise (ICD-10 - R53.81) 04/10/2024 Other malaise (ICD-10 - R53.81) 04/17/2024 Other malaise (ICD-10 - R53.81) 05/07/2024 Other malaise (ICD-10 - R53.81) 05/21/2024 Other malaise (ICD-10 - R53.81) 06/04/2024 Other malaise (ICD-10 - R53.81) 01/02/2024 Other malaise (ICD-10 - R53.81) Plan Of Treatment No Information
--- OUTSIDE RECORDS SUMMARY | 2024-11-22 11:38 | XMS_ITS | Data Portability ---
Author Organization [facility] [place] [facility] Address [address] [place] [address] Care Team Providers Care Clinical Esthetician Name Role Phone SHIRA QUICK Travel Manager Assessment No assessment recorded. Plan of Treatment Reminders Order Date Submit Date Provider Last Modified By Organization Details Last Modified Time Details Appointments None recorded. Lab HSV 2 IgG Ab, QN, IA, serum 2021 022 [facility], [address] [place] [address], [facility], [place], [address], 09:47:53 vaginal pathogens panel, MYA+probe, vaginal fluid 2021 022 [facility], [address] [place] [address], [facility], [place], [address], 03:36:33 RPR (rapid plasma reagin), serum 2021 022 [facility], [address] [place] [address], [facility], [place], [address], 03:36:34 HIV 1 + 2, meaningful use set 2021 022 [facility], [address] [place] [address], [facility], [place], [address], 03:36:35 HBsAg (hepatitis B surface Ag), EIA, serum 2021 022 [facility], [address] [place] [address], [facility] [address], [place], [address], 2 03:36:36 hepatitis C Ab, signal-to- cutoff, serum or plasma 2021 022 [facility], [address] [facility], [facility] [address], [place], [address], 2 03:36:35 HSV 2 IgG Ab, QN, IA, serum 2021 022 [facility], [address] [facility], [facility] [address], [place], [address], 2 03:36:36 HIV 1+2 AB + HIV 1 p24 Ag, qualitativ e immunoassa y, serum 2018 019 [facility], [address] [facility], [facility] [address], [place], [address], 9 06:08:48 hepatitis C Ab, signal-to- cutoff, serum or plasma 2018 019 [facility], [address] [facility], [facility], [place], [address], 9 06:08:48 RPR (rapid plasma reagin), serum 2018 [address] [facility], [address] [facility], [facility], [place], [address], 9 06:08:47 HBsAg (hepatitis B surface Ag), EIA, serum 2018 019 [facility], [address] [facility], [facility], [place], [address], 9 06:08:49 Referral gastroente rologist referral 2019 020 [facility] Ballard DO, [address] [facility], [facility] [address], [place], [address], 0 10:21:54 physical therapist referral - [facility], [address], [place], [address], 9 11:15:28 Procedures None recorded. Surgeries None recorded. Imaging MAMMO, screening, tomosynthe sis, bilateral 2021 022 [facility]uling, [address] [place], [address], 2 14:17:05 MAMMO, screening, digital, bilateral 2019 020 [facility], [address] [facility] [place], [address], 0 10:21:56 MAMMO, screening, digital, bilateral 2018 019 [email or web address] [facility], [address] [facility] [place], [address], 9 17:38:04 Medication Orders estradiol 0.01% (0.1 mg/gram) vaginal cream 2021 022 [facility] Not available 2 09:52:07 fluconazol e 150 mg tablet 2021 [facility] Not available 2 15:23:41 Patient TargetsNo targets recorded. Patient Instructions Encounter Date Encounter Id Patient Instructions Last Modified By Organization Details Last Modified Time 11/07/2018 [id number] When You Want to Lose Weight: Care Instructions [email or web address] Not available 11/07/2018 10:55:20 sciatica: care instructions [email or web address] Not available 11/07/2018 10:46:08 learning about breast cancer screening [email or web address] Not available 11/07/2018 10:30:07 05/20/2020 [id number] When You Want to Lose Weight: Care Instructions [email or web address] Not available 05/20/2020 10:27:09 learning about breast cancer screening [email or web address] Not available 05/20/2020 10:19:33 10/20/2021 [id number] A healthy lifestyle: care instructions [email or web address] Not available 10/20/2021 15:28:04 bilateral inverted nipples. pt reports present since before puberty. Pt educated on warning signs and notified to call office if issues occur. pt notified to continue SBE and annual cbe and mammograms. [email or web address] Not available 10/21/2021 08:58:22 Reason for Referral Physical Therapist Referral for Sciatica Not [facility] Referring Physician: Shira Quick, INK GRINDER, Encounter Date: 11/07/2018 Marketing Rep Referral for Screening for malignant neoplasm of colon Referring Physician: Shira Quick INK GRINDER, Encounter Date: 05/20/2020 Results Created Date Observation Date Name Description Value Unit Range Abnormal Flag Note LastModifiedBy Organization Detail LastModifiedTime 11/08/19 19 11/08/2018 RPR (rapi d plasm a reagi n), serum RPR Non Reacti ve non reacti ve Not Available [facility] ([facility]) [address] [place], [address], 11/08/2018 06:08:47 11/08/1911/08/2018 HIV 1+2 AB + HIV 1 p24 Ag, quali tativ e immun oassa y, serum HIV screen 4TH generation wrfx Non Reacti ve non reacti ve Not Available [facility] ([facility]) [address] [place], [address], 11/08/2018 06:08:48 11/08/1911/08/2018 hepat itis C Ab, signa l-to- cutof f, serum or plasm a HCV Ab <0.1 s/co_ ratio 0.0-0. 9 Not Available [facility] ([facility]) [address] [place], [address], 11/08/2018 06:08:48 11/08/1911/08/2018 hepat itis C Ab, signa l-to- cutof f, serum or plasm a comment: Commen t Non react keya HCV antib carmelo scree n is consi stent with no HCV infec tion, unles s recen t infec tion is suspe cted or other evide nce exist s to indic ate HCV infec tion. Not Available [facility] ([facility]) [address] [facility], [place], [address], 11/08/2018 06:08:48 11/08/19 19 11/08/2018 HBsAg (hepa titis B surfa ce Ag), EIA, serum HBsAg screen Negati ve negati ve Not Available [facility] ([facility]) [address] [place], [address], 11/08/2018 06:08:49 10/21/19 22 10/21/2021 NUSWA B VAGIN ITIS PLUS (VG+) atopobium vaginae Modera te - 1 score Not Available [facility] ([facility]) [address] [facility], [place], [address], 10/22/2021 03:36:33 10/21/19 22 10/21/2021 NUSWA B VAGIN ITIS PLUS (VG+) bvab 2 High - 2 score abnormal Not Available [facility] ([facility]) [address] [place], [address], 10/22/2021 03:36:33 10/21/19 22 10/21/2021 NUA B VAGIN ITIS PLUS (VG+) megasphaera 1 High - 2 score abnormal Calcu late total score by addin g the 3 indiv idual bacte rial vagin osis (BV) marke r score s toget her. Total score is inter prete d as follo ws: Total score 0-1: Indic ates the absen ce of BV. Total score 2: Indet ermin ate for BV. Addit ional clini alon data shoul d be evalu ated to estab alfonzo a diagn osis. Total score 3-6: Indic ates the prese nce of BV. This test was vibha irizarry and its perfo rmanc e daren cteri stics deter mined by [facility]. It has not been clear ed or appro sintia by the Food and Drug Admin istra tion. Not Available [facility] ([facility]) [address] [place], [address], 10/22/2021 03:36:33 10/21/19 22 10/21/2021 NUSWA B VAGIN ITIS PLUS (VG+) gabriel albicans, MYA Negati ve negati ve Not Available [facility] ([facility]) [address] [place], [address], 10/22/2021 03:36:33 10/21/19 22 10/21/2021 NUSWA B VAGIN ITIS PLUS (VG+) gabriel glabrata, MYA Negati ve negati ve Not Available [facility] ([facility]) [address] [place], [address], 10/22/2021 03:36:33 10/21/19 22 10/21/2021 NUSWA B VAGIN ITIS PLUS (VG+) trich vag by MYA Negati ve negati ve Not Available [facility] ([facility]) [address] [place], [address], 10/22/2021 03:36:33 10/21/19 22 10/21/2021 NUSWA B VAGIN ITIS PLUS (VG+) chlamydia trachomatis, MYA Negati ve negati ve Not Available [facility] ([facility]) [address] [place], [address], 10/22/2021 03:36:33 10/21/19 22 10/21/2021 NUSWA B VAGIN ITIS PLUS (VG+) neisseria gonorrhoeae, MYA Negati ve negati ve Not Available [facility] ([facility]) [address] [place], [address], 10/22/2021 03:36:33 10/21/19 22 10/21/2021 RPR, RFX QN RPR/C ONFIR M TP RPR Non Reacti ve non reacti ve Not Available [facility] ([facility]) [address] [place], [address], 10/22/2021 03:36:34 10/21/19 22 10/21/2021 HIV AB/P2 4 AG WITH REFLE X HIV Ab/P24 Ag screen Non Reacti ve non reacti ve HIV Negat keya HIV-1 /HIV- 2 antib odies and HIV-1 p24 antig en were NOT detec kira. There is no labor atory evide nce of HIV infec tion. Not Available [facility] ([facility]) [address] [facility], [place], [address], 10/22/2021 03:36:34 10/21/19 22 10/21/2021 HCV ANTIB CARMELO hep C virus Ab <0.1 s/co_ ratio 0.0-0. 9 Negat keya: < 0.8 Indet ermin ate: 0.8 - 0.9 Posit keya: > 0.9 The CDC recom mends that a posit keya HCV antib carmelo resul t be follo wed up with a HCV Nucle ic Acid Ampli ficat ion test (5507 13). Not Available [facility] ([facility]) [address] [place], [address], 10/22/2021 03:36:35 10/21/19 22 10/21/2021 HSV-2 TYPE SPEC AB, IGG W/RFL X hsv 2 IgG, type spec 9.63 index 0.00-0 .90 above high normal Negat keya <0.91 Equiv ocal 0.91 - 1.09 Posit keya >1.09 Note: Negat keya indic ates no HSV-2 antib odies detec kira. Posit keya indic ates HSV-2 antib odies detec kira. Equiv ocal and low posit keya HSV-2 scree ns (Inde x 0.91- 5.00) may be false posit keya and are refle xed to suppl ement al testi ng in accor dance with CDC guide lines . Not Available [facility] ([facility]) [address] [facility], [place], [address], 10/22/2021 03:36:36 10/21/19 22 10/21/2021 HBSAG SCREE N HBsAg screen Negati ve negati ve Not Available [facility] ([facility]) [address] [facility], [place], [address], 10/22/2021 03:36:36 05/22/2004/17/2019 MAMMO , scree marla, digit al, bilat eral No observ ation record ed. BARCODE Not Available 2019 17:15:05 11/03/19 22 10/28/2021 MAMMO , scree marla, tomos ynthe sis, bilat eral No observ ation record ed. [facility] (Radiology) [address] [place] [address], [address], 11/04/2021 16:40:07 Result Notes None recorded. Problems Name Problem SNOMED Code Status Onset Date Resolution Date Notes Provider Name and Address Organization Details Recorded Time Dysmenorrhe a 165834816 Active Crystal Ledgewood null, [place] - [facility] 9 10:00:57 Irregular periods 70961689 Active Crystal [place] [facility] 9 10:00:57 Endocervica l polyp 6920850 Active Crystal [place] [facility] 9 10:00:57 Adnexal tenderness 952529722 Active Crystal [place] [facility] 9 10:00:57 Dysfunction al uterine bleeding Completed 03/31/2017 Shira Quick [place] [facility] 0 11:39:10 Uterine leiomyoma 53593356 Active Crystal L[place] [facility] 9 10:00:57 Menorrhagia 972896165 Active Crystal [place] [facility] 9 10:00:57 Muscle strain 84790466 Active Crystal [place] [facility] 9 10:00:57 Pain in pelvis 55975504 Active Crystal [place] [facility] 9 10:00:57 Dysuria 78713155 Active Crystal [place] [facility] 9 10:00:57 Bacterial vaginosis 997532302 Active Crystal [place] [facility] 9 10:00:57 Hyperlipide amanda 90000058 Active Crystal [place] [facility] 9 10:00:57 Fuchs' corneal dystrophy 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 Procedures Surgical History Date Name Laterality Status Provider Name and Address Organization Details Recorded Time 04/17/20 19 Most Recent Mammogram completed Shira Quick [place] [facility] 05/20/2020 10:18:04 03/31/20 17 Total hysterectomy completed GUEVARA Marcos Attn: Accounting,[address] [place], [address], [place] [facility] 10/20/2021 15:30:44 03/31/20 17 TOTAL ABDOMINAL HYSTERECTOMY (SURG) completed [place]ira Quick [place] [facility] 04/27/2017 12:36:43 03/31/20 17 TOTAL ABDOMINAL HYSTERECTOMY (SURG) [place]ira Quick [place] 04/27/2017 10:58:16 12/09/19 16 Other completed Shira Quick [place] [facility] 12/30/2015 09:53:36 06/17/20 15 Other completed Shira CALDERON - [facility] 12/30/2015 09:53:36 02/13/20 15 IUD Insertion completed Shira Quick [place] - [facility] 02/12/2015 13:21:34 01/16/20 15 Colonoscopy with biopsy completed Cristina Freitas MD Attn: Accounting[address] , [place], [address], [place] [facility] 03/16/2016 14:35:24 09/03/19 15 Endometrial Biopsy completed Shira Leivaews [place] - [facility] 09/03/2014 09:08:55 09/03/19 15 Generic Procedure completed Shira Quick [place] - [facility] 09/03/2014 09:08:55 08/02/19 13 Date of Last Pap Smear completed Africa Macias [place] - [facility] 08/26/2014 12:23:02 Imaging Results Imaging Date Name Status LastModified by Organiz ation Details LastModified Time 04/17/2019 MAMMO, screening, digital, bilateral completed [facility] Information not available 05/22/2020 17:15:05 10/28/2021 MAMMO, screening, tomosynthesis, bilateral completed [facility] (Radiology) [address] [place] [address], [address], 11/04/2021 16:40:07 Procedure Notes None recorded. Medical Equipment None Reported. Allergies Allergen ID Allergen Name Allergen Category Reaction Reaction Severity Criticality Documentation Date Start Date Code Code System Note Provider Name and Address Organization Details Recorded Time 82179 sulfameth oxazole / trimethop rim medicatio n other Not available Not available 08/26/2014 85449 RxNorm Lip swell ing Africa Macias null, [place] - [facility] 5 12:23:01 48209 Product containin g penicilli n (product) medicatio n itching Not available Not available 04/02/2016 49431 8001 SNOMED Cristina Freitas MD Attn: Accountadrshan mcneal,[address] , [place], [address], [facility] - [facility] 6 13:14:24 Medications Name Sig Start Date Stop Date Status Note LastModified by Organization Details LastModified Time tetracyclin e 500 mg capsule TAKE 1 CAPSULE (500 MG TOTAL) BY MOUTH 4 (FOUR) TIMES A DAY FOR 14 DAYS 10/20 completed Not Available Not Available Not Available amoxicillin 500 mg capsule 05/20 completed Not Available Not Available Not Available sodium chloride 5 % eye drops active Not Available Not Available Not Available medroxyprog esterone 10 mg tablet TAKE 1 TABLET BY MOUTH EVERY DAY active Not Available Not Available No t Available potassium chloride ER 10 mEq capsule,ext ended release 05/20 completed Not Available Not Available Not Available prednisone 10 mg tablet PLEASE SEE ATTACHED FOR DETAILED DIRECTION S 10/20 completed Not Available Not Available Not Available rabeprazole 20 mg tablet,waldemar yed release 05/20 completed Not Available Not Available Not Available doxycycline hyclate 100 mg capsule 05/20 completed Not Available Not Available Not Available atorvastati n 20 mg tablet Take 1 tablet every day by oral route. 05/20 completed Not Available Not Available Not Available tizanidine 2 mg tablet TAKE 1 TO 2 TABLETS BY MOUTH EVERY NIGHT NEEDED BACK PAIN 10/20 completed Not Available Not Available Not Available clindamycin HCl 300 mg capsule 05/20 completed Not Available Not Available Not Available diphenhydra mine 50 mg capsule 07/06 completed Not Available Not Available Not Available azithromyci n 250 mg tablet 11/07 completed Not Available Not Available Not Available fluconazole 150 mg tablet TAKE BY ORAL ROUTE BY MOUTH active Not Available Not Available No t Available clarithromy kyler 500 mg tablet 05/20 completed Not Available Not Available Not Available hydrocodone 5 mg-acetamin ophen 325 mg tablet TAKE 1 TAB BY MOUTH 2 TIMES DAILY NEEDED FOR MODERATE OR MORE SEVERE PAIN. 10/20 completed Not Available Not Available Not Available ondansetron HCl 4 mg tablet TAKE 1 TAB BY MOUTH EVERY 8 HOURS NEEDED FOR NAUSEA 1ST LINE. 10/20 completed Not Available Not Available Not Available prednisone 20 mg tablet 05/20 completed Not Available Not Available Not Available medroxyprog esterone 5 mg tablet Take 1 tablet every day by oral route. active Not Available Not Available No t Available estradiol 0.1 mg/24 hr semiweekly transdermal patch APPLY 1 PATCH TWICE A WEEK 2019 active Not Available Not Available Not Avai lable metronidazo le 250 mg tablet 05/20 completed Not Available Not Available Not Available acetazolami de 250 mg tablet active Not Available Not Available Not Available metronidazo le 500 mg tablet TAKE 1 TABLET BY MOUTH TWICE A DAY FOR 7 DAYS active Not Available Not Available No t Available acetaminoph en 300 mg-codeine 30 mg tablet 05/20 completed Not Available Not Available Not Available levofloxaci n 250 mg tablet 05/20 completed Not Available Not Available Not Available cimetidine 300 mg tablet 05/20 completed Not Available Not Available Not Available tretinoin 0.05 % topical cream 11/07 completed Not Available Not Available Not Available estradiol 0.05 mg/24 hr semiweekly transdermal patch APPLY ONE PATCH TOPICALLY TWICE WEEKLY 10/20 completed Not Available Not Available Not Available ciprofloxac in 500 mg tablet 11/07 completed Not Available Not Available Not Available hydrocodone 10 mg-acetamin ophen 325 mg tablet TAKE 1 TABLET BY MOUTH EVERY 8 HOURS NEEDED FOR MODERATE OR MORE SEVERE PAIN. 10/20 completed Not Available Not Available Not Available omeprazole 40 mg capsule,del ayed release 05/20 completed Not Available Not Available Not Available tramadol 50 mg tablet 03/03 completed Not Available Not Available Not Available triamcinolo ne acetonide 0.1 % topical cream 05/20 completed Not Available Not Available Not Available amoxicillin 500 mg tablet 05/20 completed Not Available Not Available Not Available dexamethaso ne sodium phosphate 0.1 % eye drops INSTILL ONE DROP INTO THE LEFT EYE ONCE A DAY. active Not Available Not Available No t Available pantoprazol e 20 mg tablet,waldemar yed release 05/20 completed Not Available Not Available Not Available meloxicam 7.5 mg tablet TAKE 1 TABLET BY MOUTH DAILY WITH FOOD 10/20 completed Not Available Not Available Not Available hydrocortis one 2.5 % topical cream with perineal applicator 05/20 completed Not Available Not Available Not Available alprazolam 0.25 mg tablet 08/10 completed Not Available Not Available Not Available prednisolon e acetate 1 % eye drops,suspe nsion active Not Available Not Available Not Available estradiol 1 mg tablet Take 1 tablet every day by oral route. 11/08 completed Not Available Not Available Not Available ciprofloxac in 0.3 % eye drops active Not Available Not Available No t Available hydrocodone 7.5 mg-acetamin ophen 325 mg tablet TAKE 1 TABLET BY MOUTH TWICE A DAY NEEDED FOR MODERATE OR MORE SEVERE PAIN. 10/20 completed Not Available Not Available Not Available cephalexin 500 mg capsule active Not Available Not Available Not Available paroxetine 20 mg tablet TAKE 1 TABLET BY MOUTH EVERY DAY 10/20 completed Not Available Not Available Not Available pantoprazol e 40 mg tablet,waldemar yed release TAKE 1 TABLET BY MOUTH EVERY DAY active Not Available Not Available No t Available diclofenac 0.1 % eye drops active Not Available Not Available Not Available buspirone 10 mg tablet 05/20 completed Not Available Not Available Not Available prednisone 50 mg tablet 07/06 completed Not Available Not Available Not Available omeprazole 20 mg capsule,del ayed release 05/20 completed Not Available Not Available Not Available zolpidem 5 mg tablet TAKE 1 TABLET BY MOUTH EVERY DAY AT NIGHT 10/20 completed Not Available Not Available Not Available furosemide 20 mg tablet Take 1 tablet every day by oral route. 11/07 completed Not Available Not Available Not Available estradiol 0.5 mg tablet Take 1 tablet every day by oral route. 11/08 completed Not Available Not Available Not Available ergocalcife rol (vitamin D2) 1,250 mcg (50,000 unit) capsule TAKE 1 CAPSULE BY MOUTH ONE TIME PER WEEK active Not Available Not Available No t Available Transderm-S coper hand 1 mg over 3 days transdermal patch 03/03 completed Not Available Not Available Not Available ibuprofen 600 mg tablet Take 1 tablet 3 times a day by oral route. 04/19 completed Not Available Not Available Not Available levofloxaci n 500 mg tablet 05/20 completed Not Available Not Available Not Available estradiol 0.01% (0.1 mg/gram) vaginal cream APPLY VAGINALLY EVERY NIGHT AT BEDTIME FOR 2 WEEKS, THEN TAPER TO 1X VAGINALLY AT BEDTIME 1X WEEKLY active Not Available Not Available No t Available levofloxaci n 750 mg tablet 03/03 completed Not Available Not Available Not Available methylpredn isolone 4 mg tablets in a dose pack TAKE 6 TABLETS ON DAY 1 DIRECTED ON PACKAGE AND DECREASE BY 1 TAB EACH DAY FOR A TOTAL OF 6 DAYS 10/20 completed Not Available Not Available Not Available oxybutynin chloride 5 mg tablet 08/10 completed Not Available Not Available Not Available fluticasone propionate 50 mcg/actuati on nasal spray,suspe nsion Inhale 1 spray every day by intranasa l route. 07/06 completed Not Available Not Available Not Available loratadine 10 mg tablet Take 1 tablet every day by oral route. 03/03 completed Not Available Not Available Not Available diazepam 5 mg tablet TAKE 1 TABLET 1 HOUR PRIOR TO MRI. MAY TAKE AN ADDITIONA L IMMEDIATE LY PRIOR IF NEEDED. 10/20 completed Not Available Not Available Not Available amoxicillin 875 mg-potassiu m clavulanate 125 mg tablet Take 1 tablet every 12 hours by oral route for 10 days. 07/06 completed Not Available Not Available Not Available buspirone 15 mg tablet 05/20 completed Not Available Not Available Not Available cyclobenzap rine 5 mg tablet TAKE 1 TABLET BY MOUTH NIGHTLY NEEDED FOR MUSCLE SPASMS FOR UP TO 30 DOSES. 10/20 completed Not Available Not Available Not Available rosuvastati n 10 mg tablet TAKE 1 TABLET BY MOUTH EVERY DAY AT NIGHT active Not Available Not Available No t Available ketorolac 0.4 % eye drops 03/03 completed Not Available Not Available Not Available nitrofurant oin monohydrate /macrocryst als 100 mg capsule 08/10 completed Not Available Not Available Not Available Alinia 500 mg tablet 05/20 completed Not Available Not Available Not Available eszopiclone 2 mg tablet 08/10 completed Not Available Not Available Not Available Mirena 08/10 completed Not Available Not Available Not Available olopatadine 0.2 % eye drops 11/07 completed Not Available Not Available Not Available Prenate DHA 28 mg iron-1 mg-300 mg capsule 08/10 completed Not Available Not Available Not Available ID NOW COVID-19 Test Kit TEST DIRECTED active Not Available Not Available No t Available Vitals Date Recorded Body height Body mass index (BMI) Body weight Systolic blood pressure Diastolic blood pressure Provider Name and Address Organization Details Last Updated DateTime 11/07/2018 162.56 cm 36.1 kg/m2 77650.76 g 134 mm[Hg] 86 mm[Hg] Elizabeth Farrell [place] - [facility] 9 10:03:28 Date Recorded Body height Systolic blood pressure Diastolic blood pressure Provider Name and Address Organization Details Last Updated DateTime 11/13/2018 162.56 cm 120 mm[Hg] 82 mm[Hg] Elizabeth Farrell [facility] [address] 11/13/2018 11:45:14 Date Recorded Body height Body mass index (BMI) Body weight Systolic blood pressure Diastolic blood pressure Provider Name and Address Organization Details Last Updated DateTime 05/20/2020 162.56 cm 36.6 kg/m2 29293.61 g 126 mm[Hg] 84 mm[Hg] Elizabeth Farrell MA [facility] [address] 0 09:52:58 Date Recorded Body height Body mass index (BMI) Body weight Systolic blood pressure Diastolic blood pressure Provider Name and Address Organization Details Last Updated DateTime 10/20/2021 162.56 cm 35.7 kg/m2 08560.21 g 124 mm[Hg] 80 mm[Hg] Millicent Migdalia Ceci [facility] [address] [address] 2 14:22:28 Date Recorded Body height Systolic blood pressure Diastolic blood pressure Provider Name and Address Organization Details Last Updated DateTime 10/27/2021 162.56 cm 130 mm[Hg] 80 mm[Hg] Elizabeth Farrell MA [facility] 10/27/2021 09:38:48 Social History Question Answer Notes LastModified by Organizat ion Details LastModified Time Tobacco Smoking Status Never Smoker Elizabeth Far[facility] 04/15/2015 09:25:11 What Is Your Level Of Alcohol Consumption? None Information not available 08/26/2014 Is Blood Transfusion Acceptable In An Emergency? Yes Information not available 08/27/2014 What Is Your Level Of Caffeine Consumption? None Information not available 08/27/2014 How Much Tobacco Do You Chew? None Information not available 08/27/2014 Are You Currently Employed? Yes Information not available 08/27/2014 What Type Of Diet Are You Following? REGULAR Pt Is Only Eating 1200 Calories [email or web address] Information not available 05/20/2020 Which Illicit Or Recreational Drugs Have You Used? No Information not available 08/27/2014 Do You Or Have You Ever Used E-cigarettes Or Vape? 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 Alone Information not available 08/27/2014 Marital Status Single [email or web address] Informatio n not available 09/12/2017 What Was The Date Of Your Most Recent Tobacco Screening? 10/20/2021 [email or web address] Information not available 10/20/2021 How Many Children Do You Have? 0 Information not available 08/26/2014 Performs Monthly Self-breast Exam? Yes Information not available 08/27/2014 What Is Your Relationship Status? Single Information not available 08/27/2014 Seat Belts Used Routinely Yes Information not available 08/27/2014 Are You Sexually Active? No Information not available 08/27/2014 Do You Or Have You Ever Used Smokeless Tobacco? Never Used Smokeless Tobacco Information not available 05/20/2020 How Much Tobacco Do You Smoke? No Information not available 08/27/2014 General Stress Level Low Information not available 05/20/2020 Do You Use Sunscreen Routinely? No Information not available 08/27/2014 Sex: Unknown Functional Status Question Answer Note LastModified by Organization D etails LastModified Time What is your exercise level? Moderate [email or web address] Information not available 11/07/2018 Mental Status None recorded. Family History Relationship Description Onset Age of this Age Resolved Age Notes LastModified by Organization Details LastModified Time Mother Heart failure [email or web address] Not available 2015 12:35:10 Mother Hypertensive disorder [email or web address] Not available 2015 12:35:10 Mother Hypercholest erolemia [email or web address] Not available 2015 12:35:10 Father Myocardial infarction [email or web address] Not available 03/31 12:35:10 Father Diffuse disease of coronary artery [email or web address] Not available 2015 12:35:10 Father Heart disease [email or web address] Not available 2015 12:35:10 Father Hypertensive disorder [email or web address] Not available 2015 12:35:10 Father Hypercholest erolemia [email or web address] Not available 2015 12:35:10 Father Diabetes mellitus [email or web address] Not available 2018 10:09:56 Sister Malignant neoplasm of brain [email or web address] Not available 2015 12:35:10 Medical History Condition Response Coronary Artery Disease N Kidney Cyst N Blood Diseases N Hyperthyroidism N Blood disorders N Blood Transfusion N MRSA N Emphysema N Depression N COPD N Blood Clots N Pneumonia N Premature N Peripheral Arterial Disease N Edema N TIA N Headaches/Migraines N Anxiety Disorder N Obesity N Polyps N Infertility N Acid Reflux (GERD) N Hematuria N Stroke N Neck Injury N Polio N Hospital Admission other than N Neurologic Disorder N Other Sleep Disorders N Rheumatoid Arthritis N Fibromyalgia N Abdominal Aortic Aneurysm Repair N Kidney Disease N Heart Conditions N Heart Disease/Heart Problems N Hospitalizations N Brain Tumors N Acne N Skin Problems N Eating Disorder N Meningitis N Constipation N Tuberculosis N Cerebral Palsy N Myocardial Infarction N Asthma N Substance Abuse N Peripheral Vascular Disease N Vertigo N Sleep Disorder N Cirrhosis N Pulmonary Embolism N Chicken Pox N Hematologic Disease N Flomax Use Past or Present N Anxiety/Depression N Thyroid Disease N Colon Cancer N Lung Disease N Glaucoma N Developmental or Behavioral Disorders N Bipolar N Pacemaker N Diverticulitis/Diverticulosis N Orthopedic Problems N Anesthesia Complications N Orthotics N Head Injury/Concussion N Congenital Anomalies N Delgado Bite N Chronic Kidney Disease N Endometriosis N Liver Disease N Schizophrenia N Dialysis N Speech Delay N Chronic Obstructive Pulmonary Disease N Parkinson's Disease N Thyroid Problems N GI Problems N Developmental Delay N Anemia Y Multiple Sclerosis N Immune System Disorder N Colon Polyps N Heart Attack ([place]) N Diabetes N Cardiomyopathy N Blood Transfusions N Heart Problems/Murmur N Eye Trauma N Congestive Heart Failure (CHF) N Valvular Heart Disease N Hyperlipidemia N Double Vision N Abuse/Domestic Violence N Hepatitis B N Lupus N Epilepsy/Seizures N Reflux/GERD N Aneurysm N Heart Disease N Bronchitis N Pre-Eclampsia N Hypertension N Heart Failure N Other N Gout N High Blood Pressure N Atrial Fibrillation N Kidney Stones N Head Trauma/Injury N Congenital Heart Disease N Spine Problems N Gastrointestinal Disease N Lung Mass N Sinusitis N Obstructive Sleep Apnea N Muscle, Joint, or Bone Problems N Autoimmune disease N Vision or Eye Problems N Arthritis N Blood Clot N Cancer N Seasonal allergies N Leg or Foot Ulcers N Raynaud's Disease N Aortic Aneurysm N Arrhythmia N Headaches N Heart Problems N Ambloypia N Ear or Hearing Problems N Hyperparathyroidism N Migraines N Artificial Joints N Kidney or Bladder Problems N NSAID Use N Encephalitis N PTSD N Ulcers N Prostate Hypertrophy N Bleeding Disorder N AIDS/HIV N Urinary Tract Infection N Back Problems N Allergies Y Atrial Flutter N GERD/Reflux N Hepatitis N Autism Spectrum Disorder (ASD) N Breast Cancer N Hernia N Hypothyroidism N Breast Problem N Genitourinary Disease N Deep Vein Thrombosis N Varicose Veins N Cystic Fibrosis N Hearing Loss N Developmental Problems N Carotid Disease N Vitamin D Deficiency N ADHD N Bladder or Kidney Problems N High Cholesterol Y Meniers N Valvular Abnormalities N Psychiatric/Mental Health Condition N Organ Transplant N Foot Deformity N Allergies/Hayfever N Dyslipidemia N Hyponatremia N Diabetic Eye Disease N Osteoporosis/Osteopenia N Back Pain N Proteinuria N Mental Illness N Neurological Problems N Ovarian Cancer N Bedwetting N Seizures/Epilepsy N Kidney Failure N Ocular trauma N Diverticulitis N Dementia N Sleep Apnea N Mental Problems N Warfarin Management N Osteoporosis N Gynecological History Statement/Question Response Abnormal Pap N Sexually Active? N Menses Monthly No STIs/STDs Y HPV Vaccine N Date of Last Pap Smear 08/02/2012 Most Recent Mammogram 04/17/2019 Current Control Method Hysterectom y Age at Menarche 15 LMP Approximate Obstetrics History GPAL:G 0 P 0 0 0 0 Type Value Multiple Births 0 Full Term 0 Induced 0 Spontaneous 0 Premature 0 Living 0 Ectopics 0 Total 0 Past Encounters Encounter ID Performer Location Encounter Start Date Encounter Closed Date Diagnosis/Indication Diagnosis SNOMED-CT Code Diagnosis ICD10 Code Diagnosis Note [id number] MD Nisa Delgado ([facility]) [address] [place] [address] 08/27/2014 13:27:32 08/27/2014 15:56:57 Dysmenorrhea [id number] Irregular periods 20883070 Possibilit y of endometria l CA d/w pt. Recommenda tion made for EMB and EMB procedure d/w pt. Pt. will schedule EMB. [id number] MD Nisa Delgado ([facility]) [address] [place] [address] 09/03/2014 08:14:39 09/03/2014 13:53:22 detection examination [id number] Irregular periods 04680939 Benefits, risks, and alternativ es to EMB d/w pt. Pt. expressed understand ing. All pt questions answered. Consent signed and in chart. EMB performed without difficulty . Please see procedure note for details. Pt. tolerated the procedure well. RTO one week for results. Endocervical polyp 6374721 Endocervic al polyp encountere d at the time of EMB. Excision was recommende d to the patient and gave consent to have it removed. Please see procedure note for details. Pt. also tolerated this procedure well. RTO one week for results. Adnexal tenderness 540079796 Pt. with left adnexal tenderness on exam and c/o left pelvic pain unrelieved with ibuprofen. No masses palpated. Pelvic US ordered. [id number] MD Nisa Delgado ([facility]) [address] [place] [address] [place] [phone] 09/10/2014 11:17:53 09/10/2014 12:09:53 Irregular periods [id number] EMB and Polyp were benign, dwp. MRI reviewed. Five cm uterine fibroid already seen on US was the only abnormal finding, dwp. Pt. had blood work done at [facility] showing H/H = 11.7/36.4. She wants the bleeding to stop. Progestero ne therapy discussed, recommende d. Given that pt is so close to the menopause, will try to treat bleeding medically. The hope is that controllin g the bleeding will also control the pain. Above d/w pt. Pt expressed understand ing. Rx sent to pharmacy. Instructio augustina discussed. [id number] Isaac Montoya MD [facility] ([place] [address]) [address] [place] [address] Dr [place] [address] [place] [id number] 11/07/2014 08:53:44 11/07/2014 10:58:25 Dysfunctional uterine bleeding 12651859 Uterine leiomyoma 89040796 Irregular periods 60515729 [id number] MD Nisa Delgado ([facility]) [address] [place] [address] [place] [phone] 01/29/2015 08:59:26 01/29/2015 13:20:46 detection examination 49038928 Menorrhagia 219463868 Op tion of returning to taking Provera 5 mg. 12 days per month vs Mirena IUD vs endometria l ablation vs hysterecto my discussed. Pt. does not like the swelling and weight gain the pills were causing. However, she wants to do the least invasive thing that may fix the problem. Benefits, risks, and alternativ es to Mirena IUD d/w pt. Pt. expressed understand ing. All pt. questions answered. Pt. desires the Mirena IUD. Handout given. UPT is negative today. RTO 2 weeks for repeat UPT and Mirena IUD insertion. [id number] MD Nisa Delgado ([facility]) [address] [place] [address] 02/12/2015 10:25:07 02/12/2015 11:16:35 Dysfunctional uterine bleeding 80246035 Insertion of intrauterine contraceptive device 25441529 Benefits, risks, and alternativ es to Mirena IUD insertion d/w pt. Pt. expressed understand ing. All pt. questions answered. Consent signed and in chart. UPT was negative. EMB was benign. Mirena IUD inserted per protocol and without difficulty . Please see procedure note for details. Pt. was instructed to have the device removed in 5 years. A reminder card was given. RTO 2 mo. for string check. [id number] MD Nisa Delgado ([facility]) [address] [place] [address] 04/15/2015 09:15:59 04/15/2015 11:09:16 IUD check 061262793 IUD in place. Pt. reassured. Expectatio ns discussed. RTO PRN + 08/02/15 for AE. [id number] MD Nisa Delgado ([facility]) [address] [place] [address] 12/30/2015 09:05:41 12/30/2015 13:41:35 Venereal disease screening 272641368 Z11.3 RTO one week for results. Screening for malignant neoplasm of breast 253536111 Z12.39 Gynecologi c examination 16625632 Z01.419 Last pap done 08/02/12 was negative with negative hr-HPV. Therefore, no pap needed. Dysuria 28302125 R30.0 Bacterial vaginosis 4197 79575 N76.0 Diagnosis d/w pt. Rx sent to pharmacy. instructio ns discussed. [id number] MD Nisa Delgado ([facility]) [address] [place] [address] 05/14/2015 15:44:13 05/14/2015 17:31:55 Muscle strain 92392555 S39.013A Diagnosis d/w pt. Advised alternatin g heat and/or ice, antiinflam matory medication , rest, and light stretching . Pain in pelvis 38041194 R10.2 Ultrasound showed a 2 cm fundal fibroid. Unlikely cause of pain d/w pt. Pain reproduced in the office with stretching of the iliopsoas muscle. [id number] MD Nisa Delgado ([facility]) [address] [place] [address] 01/06/2016 10:27:42 01/07/2016 16:13:13 Venereal disease screening 998224163 Z11.3 Vaginal culture was positive for BV which was treated at the time of collection . It was negative for gonorrhea, chlamydia, trichomona s, and yeast, dwp. STD panel was completely negative. individual test results d/w pt. RTO PRN + one year. 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 Advised pt. to keep the IUD because it is helping with her bleeding. Ultrasound ordered. RTO one week for results and POC. [id number] MD Nisa Delgado ([facility]) [address] [place] [address] 07/14/2016 15:09:05 07/26/2016 16:22:40 Low back pain 162395082 M54.5 UA negative, dwp. Again, recommende d PT. Referral generated. Uterine leiomyoma 395755 05 D25.9 Pelvic US showed a 2.4 cm fundal fibroid. Unlikely cause of pt.'s pain d/w pt. Pain was reproducab le with stretching of the illiopsoas muscle. Recommende d PT and stretching . [id number] [facility] [address] [place] [address] 03/03/2017 10:42:22 03/17/2017 14:15:49 Uterine leiomyoma 18096612 D25.9 Pelvic US showed a 4.4 cm fundal fibroid. This has increased in size and pain is also increasing . Pt. cannot take it anymore and requests excision.B enefits, risks, and alternativ es to FRANCIS d/w pt. Pt. expressed understand ing. All pt. questions answered. After a lengthy discussion re her ovaries, pt. would like to keep them if they look normal.Bry schedule FRANCIS. [id number] [facility] [address] [place] [address] 03/22/2017 13:43:03 03/23/2017 09:11:33 Uterine leiomyoma 22032732 D25.9 Pelvic US showed a 4.4 cm fundal fibroid. This has increased in size and pain is also increasing . Pt. cannot take it anymore and requests excision.B enefits, risks, and alternativ es to FRANCIS d/w pt. Pt. expressed understand ing. All pt. questions answered. After a lengthy discussion re her ovaries, pt. would like to keep them if they look normal.FRANCIS scheduled 03/31/17. [id number] [facility] [address] [place] [address] 04/19/2017 10:48:19 04/20/2017 11:52:57 Postoperative pain 122828815 G89.18 Pt's pain is not completely controlled with OTC meds. Pt. states she was needing to take 2 [place] 5/325s for pain. Rx sent to pharmacy. Instructio ns discussed. RTO 2 weeks. Not for work to be out until 05/16/17 given. [id number] [facility] [address] [place] [address] 05/03/2017 10:49:58 05/06/2017 14:03:53 Bacterial vaginosis 504418985 N76.0 Diagnosis d/w pt. Rx sent to pharmacy. Instructio ns discussed. Postoperative visit 6266 85198 Z09 Recovering well. Pt. ready to return to work at 6 week post-OP on 05/16/17. [id number] [facility] [address] [place] [address] 08/10/2017 08:42:47 08/12/2017 10:02:48 Menopausal syndrome 470975103 N95.9 Benefits, risks, and alternativ es to hormone therapy d/w pt. Pt. expressed understand ing. All pt. questions answered. Rx sent to pharmacy. Instructio ns discussed. [id number] [facility] [address] [place] [address] 09/12/2017 09:35:50 11/04/2017 11:35:17 Bacterial vaginosis 485421632 N76.0 Diagnosis d/w pt. Rx sent to pharmacy. Instructio ns discussed. Menopausal syndrome 1237 16167 N95.9 Benefits, risks, and alternativ es to hormone therapy d/w pt. Pt. expressed understand ing. All pt. questions answered. Rx sent to pharmacy. Instructio ns discussed. [id number] [facility] [address] [place] [address] 11/08/2017 10:18:02 11/11/2017 15:29:59 Granulation tissue at vaginal vault 60926204 L92.9 Silver nitrate sticks applied. Expectatio ns discussed. RTO if further bleeding. May need re-treatme nt to get all of it, dwp. [id number] MD Nisa Delgado ([facility]) [address] [place] [address] 11/07/2018 09:54:55 11/08/2018 12:20:30 Gynecologic examination 03657244 Z01.411 Last pap done 08/02/12 was negative with negative hr-HPV. Pt. had hysterecto my 2016. Therefore, no pap needed. Screening for malignant neoplasm of breast 182092531 Z12.39 Last mammogram 11/08/17 Screening for malignant neoplasm of colon 411995433 Z12.11 UTd. Last 2014 Venereal d isease screening 888390375 Z11.3 RTO one week for results. Sciatica 90337075 M54.32 Pt. was seen by PT previously and it helped her. Now, her sciatica is bothering her again. Advised stretches. Pt. wants to go to PT, but a different place. Obesity 259107227 E66.9 Nutrition and exercise discussed. [id number] MD Nisa Delgado ([facility]) [address] [place] [address] 11/13/2018 11:39:39 11/14/2018 10:53:05 Venereal disease screening 760282795 Z11.3 Vaginal culture was negative for gonorrhea, chlamydia, and trichomona s, dwp. STD panel was also completely negative. Individual test results dwp. [id number] MD Nisa Delgado ([facility]) [address] [place] [address] 05/20/2020 09:38:39 05/21/2020 08:16:54 Gynecologic examination 42374462 Z01.411 Last pap done 08/02/12 was negative with negative hr-HPV. Pt. had hysterecto my 2016. Therefore, no pap needed. Screening for malignant neoplasm of breast 438110227 Z12.39 Last mammogram 04/17/19. Mammogram ordered. Screening for malignant neoplasm of colon 973281783 Z12.11 UTd. Last 2014. Repeat 5 years. Referral generated, printed, given to pt. Obese 828778514 E66.9 Nutrition and exercise discussed. Mastodynia of bilateral breasts 3202102120 6797516 N64.4 Pt. with c/o breast swelling and tenderness with estrogen patches. She is not having hot flashes anymore. Will discontinu e HT, dwp. [id number] MD Nisa Ricks ([facility]) [address] [place] [address] 10/20/2021 14:02:56 10/21/2021 08:27:45 High risk sexual behavior 749466063 Z72.51 Nuswab collected and sent to lab. Counseled on safe sex, condom use and STD precaution s discussed screening completed per patient's request Screening mammography 24 688389 Z12.31 Patient educated on the importance of annual breast cancer screenings with mammograph y. Patient given order to schedule mammogram. Gynecologi c examination 80146169 Z01.419 -Educated on the importance of SBE and awareness. -pt denies history of abnormal pap and cervix surgically absent-Edu cated osteoporos is prevention including calcium rich foods, weight bearing exercise.- Discussed the importance of exercise.- Nutrition discussed and the importance of a diet rich in fruits, vegetable, whole grains, and lean proteins.- Counseled regarding prevention of STD's and screening options, condom use and prevention .-Advised avoidance of tobacco, alcohol, and drugs.-Dis cussed sun safety and the importance of sunscreen. Vaginal discharge 998453 006 N89.8 Educated patient on vulvar hygiene and use condoms during sex. swab obtained and sent to lab.Pt educated on management and medication . Pt notified to call office if symptoms worsen or if symptoms continue after treatment. Pt educated on prevention of yeast infections . Screening for malignant neoplasm of colon 795885189 Z12.11 Patient educated on importance of colon cancer screening with colonoscop y. Pt reports her PCP is getting her scheduled for colonoscop y. Body mass index 30+ - obesity 097881605 Z68.35 Pt educated on risks and importance of lifestyle modificati ons. pt reports following up with PCP. [id number] MD Nisa Ricks ([facility]) [address] [place] [address] 10/27/2021 09:33:21 10/28/2021 02:29:06 Venereal disease screening 732486416 Z11.3 Pt educated on HSV 2. Pt notified of chance of being asymptomat ic carrier. pt educated on std prevention . Pt opts for retesting. Lab ordered. Vaginal dryness 38337469 N89.8 Discussed options including risks and benefits. Pt declined use of vaginal moisturize r and want to start with estradiol cream. re educated on risks including but not limited to certain Ca, HTN, Stroke, DVT, PE Pt verbalized understand ing risks. Pt notified to follow up in 4-6 weeks and call office if issues occur. pt educated on warning signs. Health Concerns Section Related Observation LastModified by Organization Detai ls LastModified Time None Recorded Concern Status LastModified by Organization Details LastModified Time None Recorded Advance Directives Directive None Recorded Payers Encounter Date Sequence Insurance Name Policy Number Policy [place] Covered Member ID Cabello Member ID Guarantor Name 11/07/2018 2 [employer] (POS) [id number] Wendi Richmond [id number] Wendi Richmond 11/13/2018 2 [employer] (POS) [id number] Wendi Richmond [id number] Wendi Richmond 05/20/2020 1 [facility] [id number] Wendi Richmond [id number] Wendi Richmond 10/20/2021 1 [employer] (PPO) [id number] Wendi Richmond [id number] Wendi Richmond 10/27/2021 1 [employer] (PPO) [id number] Wendi Richmond [id number] Wendi Richmond Notes Date Note Type Note Provider Name and Address Organization Details Recorded Time 11/07/2018 text/html Annual GYNReport ed bypatient.Menstrua l cycle:Normal menses Urinary symptoms:No hematuria; No incontinence Vulva:No genital lesion Vagina:Normal vaginal discharge Breast:No breast pain; No breast lump; No nipple discharge Current Contraception:hyst erectomy Sexual complaints:No sexual complaints; No pain during intercourse; Normal libido Menopausal Symptoms:No menopausal symptoms; Normal vaginal lubrication Psychological symptoms:No depression; No anxiety; No PMDD Preventive measures:Encourage self breast examination; Encourage regular exercise; Encourage no tobacco use; Encourage regular mammograms starting age 40; Needs to schedule mammogram [facility] 11/07/2018 10:55:49 11/13/2018 text/html Pt. presents for results of STI testing. She has no complaints. Shira rios [facility] 11/13/2018 12:25:07 05/20/2020 text/html Annual GYNReport ed bypatient.Menstrua l cycle:Normal menses Urinary symptoms:No hematuria; No incontinence Vulva:No genital lesion Vagina:Normal vaginal discharge Breast:No breast pain; No breast lump; No nipple discharge Current Contraception:hyst Sexual complaints:No sexual complaints; No pain during intercourse; Normal libido Menopausal Symptoms:No menopausal symptoms; Normal vaginal lubrication Psychological symptoms:No depression; No anxiety; No PMDD Preventive measures:Encourage self breast examination; Encourage regular exercise; Encourage no tobacco use; Encourage regular mammograms starting age 40; Needs to schedule mammogram; Needs to schedule colonoscopy Shira rios [facility] 05/20/2020 10:28:05 10/20/2021 text/html 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.Menopaus al Symptoms:no menopausal symptoms; normal vaginal lubrication Vaginal Bleeding:history of menopause having occurred; no history of post menopausal bleeding Urinary Symptoms:no hematuria; no incontinence; no nocturia; no urinary frequency Vulva:no genital lesion; no vulvar atrophy Vagina:no vaginal atrophy;white;vagi nal itching Breast:no breast lump; no nipple discharge; no breast pain Sexual Complaints:no sexual complaints Psychological Symptoms:no depression; no anxiety Preventive Measures:encourage regular mammograms starting age 40; encourage self breast examination; encourage regular exercise; encourage no tobacco use; mammogram performed within the past year; needs to schedule mammogram; needs to schedule colonoscopy Pt is here for annual. Pt reports possible yeast infection. Pt reports cottage cheese like vaginal discharge and itching. Pt weaned herself off HRT. Pt denies any issues. Pt wanting std screening. pt denies known exposure to std. Pt denies any other complaints today. 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 Pt denies ever having outbreak. Pt wanting retested. Pt also reports since going through menopause she has been having vagina dryness and she was to start vaginal estrogen cream. Pt was recently treated for bv and reports bv symptoms resolved but still having dryness. Pt denies any other complaints. GUEVARA Marcos Attn: Accounting[address] [place], [address], [facility] 10/27/2021 10:46:45 OBGyn Episode No OBEpisode recorded.
--- OUTSIDE RECORDS SUMMARY | 2024-11-22 11:38 | XMS_ITS | Encounter Summary ---
Author Organization [facility] Address [address] [facility] [place] [address] Phone Care Team Providers Care Enforcement Officer Name Role Phone Monae Lee MD Unavailable [phone] Chaim Colon MD Primary Care Provider [phone] Matthew Brown DPM Unavailable [phone] Lauren Ramey MD Unavailable Unavail able Mahesh Hutchins MD Primary Care Provider [phone] Provider, None Primary Care Provider Unavailabl e Tiff Garcia MD Primary Care Provide r Reason for Visit * Reason Comments Medication Refill Encounter Details Date Type Department Care Team (Late st Contact Info) Description 06/11/2020 Refill [facility] Family Medicine [facility] [address] [place] [address] Chaim Colon MD [address] [address] Medication Refill Social History Tobacco Use Types [...] have Coronavirus / COVID-19? No / Unsure 05/30/2020 5:59 AM CONSULTING PROPERTY MANAGER documented as of this encounter Plan of Treatment Not on file documented as of this encounter Visit Diagnoses Not on filedocumented in this encounter Additional Health Concerns Assessment Noted Time PHQ-9 Depression Total Score: 0 03/07/20 20 8:00 AM CDT documented as of this encounter Care Teams Enforcement Officer Relationship Specialty Start Date End Date Chaim Colon MD #2 [facility] [place] [address] PCP - General Family Medicine 04/27/16 04/20/21 Mahesh Hutchins MD [address] [place] [address] PCP - General Internal Medicine 04/24/21 06/11/21 Provider, None [place] PCP - General 06/12/21 10/27/21 Tiff Garcia MD [address] [place] [address] [address] [place] [address] PCP - General Family Medicine 10/28/21 Monae Lee MD Consulting Physician Urology 10/06/15 Matthew Brown DPM #[address] [address] Consulting Physician Podiatry 10/25/16 Lauren Ramey MD [address] [place] [address] Obstetrics & Gynecology 04/09/19 documented as of this encounter
--- OUTSIDE RECORDS SUMMARY | 2024-11-22 11:38 | XMS_ITS | Clinical Summary ---
Author Organization [facility] [employer] Address [address] [place] [address] Care Team Providers Care Warehouse Attendant Name Role Phone Chaim Colon MD Primary Care Provider [phone] Source Comments [facility] [employer],non-owned Affiliates and Associated Physician Practices is amultiple site organization consisting of ambulatory clinics and hospital sitesin [place], [place], [place] and [place]. This disclosure is being madepursuant to the Care Everywhere program and may not contain all information available regarding this patient. Last updated 18.[facility] [employer] Allergies Active Allergy Reactions Criticality Noted Date Comments Latex Itching 09/12/2018 Penicillins Itching,Swelling 09/12/2018 Sulfamethoxazole W-Trimethoprim Swelling,Other High 12/17/2014 Other reaction(s): Swelling Other reaction(s): Other Medications * Be aware that medications may not be up to date on this document. Alwaysverify current medications with the patient. dexamethasone sodium phosphate (DECADRON) 0.1 % ophthalmic solution INSTILL ONE DROP INTO THE LEFT EYE ONCE A DAY. 1 Active ergocalciferol (DRISDOL) 1.25 MG (00713 UT) capsule ergocalciferol (vitamin D2) 1,250 mcg (50,000 unit) capsule TAKE 1 CAPSULE BY MOUTH ONE TIME PER WEEK 0 Active estradiol (VIVELLE-DOT) 0.1 MG/24HR patch estradiol 0.1 mg/24 hr semiweekly transdermal patch APPLY 1 PATCH TWICE A WEEK Active tiZANidine (ZANAFLEX) 2 MG tablet tizanidine 2 mg tablet TAKE 1 TABLET BY MOUTH NIGHTLY NEEDED FOR MUSCLE SPASMS 1 Active zolpidem (AMBIEN) 5 MG tablet Take 5 mg by mouth nightly as needed FOR SLEEP 1 Active Active Problems Problem Noted Date Diagnosed Date History of corneal transplant 06/27/2015 Abnormal uterine and vaginal bleeding, unspecifi ed 12/17/2014 Intramural leiomyoma of uterus 12/17/2014 Family History Medical History Relation Name Comments CAD (Coronary Artery Disease) Father Cardiomyopathy Mother Cancer - Colon Sister Cancer - Pancreatic Sister Relation Name Status Comments Father Mother Sister Social History Tobacco Use Types Packs/Day Years Used Date Smoking Tobacco: Never Smokeless Tobacco: Never Alcohol Use Standard Drinks/Week Comments No 0 (1 standard drink = 0.6 oz pur e alcohol) Comments No Sex and Gender Information Value Date Recorded Sex Assigned at Not on file Legal Sex 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 Gender Identity Not on file Sexual Orientation Not on file Last Filed Vital Signs Vital Sign Reading Time Taken Comments Blood Pressure 147/98 09/22/2020 9:12 AM LOCAL HAZMAT DRIVER Pulse 72 09/22/2020 9:12 AM LOCAL HAZMAT DRIVER Temperature 36.3 C (97.3 F) 09/22/2020 9:12 AM LOCAL HAZMAT DRIVER Respiratory Rate 14 09/22/2020 9:12 AM LOCAL HAZMAT DRIVER Oxygen Saturation 95% 06/26/2015 10:30 AM LOCAL HAZMAT DRIVER Inhaled Oxygen Concentration - - Weight 98.2 kg (216 lb 9.6 oz) 09/22/2020 9:12 A M LOCAL HAZMAT DRIVER Height 157.5 cm (5' 2 ) 09/22/2020 9:12 AM LOCAL HAZMAT DRIVER Body Mass Index 39.62 09/22/2020 9:12 AM LOCAL HAZMAT DRIVER Plan of Treatment Health Maintenance Due Date Last Done Comments COLOGUARD (AGES 45-75) - COL ON CA SCREENING [address] COLONOGRAPHY - COLON CA SCREENING 1965 FIT - COLON CA SCREENING 1965 FLEX SIG - COLON CA SCREENING 1964 HIV SCREENING 01/25/1979 HEPATITIS C SCREENING 01/21/1982 DTAP/TDAP/TD VACCINES (1 - Tdap) 01/25/1983 PNEUMOCOCCAL VACCINE 50+ (1 of 1 - PCV) 01/25/2014 ZOSTER VACCINE (1 of 2) 01/25/2014 SCREENING FOR DIABETES 09/22/2020 MAMMOGRAM 05/30/2022 05/30/2020 COVID-19 VACCINE (2023-2 5 season) 2024 DEPRESSION SCREENING 07/18/2024 COLONOSCOPY - COLON CA SCREENING 01/15/2025 01/15/2015 Colorectal Cancer Screening 01/15/2025 INFLUENZA VACCINE (Season Ended) 2025 05/05/2017, 07/18/2013 LIPID TESTING 05/23/2025 05/23/2020 Respiratory Syncytial Virus (RSV) Vaccine Pt: or over 60 yrs (1 - 1-dose 75+ series) 01/25/2039 HEPATITIS B VACCINE Aged Out No longe r eligible based on patient's age to complete this topic HIB VACCINE Aged Out No longer eligi ble based on patient's age to complete this topic HPV VACCINE Aged Out No longer eligi ble based on patient's age to complete this topic MENINGOCOCCAL (Group B) VACCINE SHARED DECISION-MAKING Aged Out No longer eligible based on patient's age to complete this topic MENINGOCOCCAL GROUPS A/C/Y/W VACCINE Aged Out No longer eligible b ased on patient's age to complete this topic Goals Goal Patient Goal Type Associated Problems Recent Progress Patient-Stated? Author Medication Management General On track( 021 9:27 AM LOCAL HAZMAT DRIVER) Jodi Johnson, PRASHANTH Note: Expected end date: ongoing Interventions: Take all medications as prescribed Let your doctor know right away about any changes in your medications Make sure to request a refill of your medication at least one week prior to your last dose Insurance [facility] Care Teams Warehouse Attendant Relationship Specialty Start Date End Date Chaim Colon MD PCP - General 11/15/14
--- OUTSIDE RECORDS SUMMARY | 2024-11-22 11:38 | XMS_ITS | Encounter Summary ---
Author Organization [facility] Address [address] [facility] [place] [address] Phone Care Team Providers Care Elevator Adjuster Name Role Phone Monae Lee MD Unavailable [phone] Chaim Colon MD Primary Care Provider [phone] Matthew Brown DPM Unavailable [phone] Lauren Ramey MD Unavailable Unavail able Mahesh Hutchins MD Primary Care Provider [phone] Provider, None Primary Care Provider Unavailabl e Tiff Garcia MD Primary Care Provide r Reason for Visit * Reason Comments Medication Refill Encounter Details Date Type Department Care Team (Late st Contact Info) Description 05/29/2020 Refill [facility] Family [facility] [address]2 [place] [address] Chaim Colon MD #[address] [address] Medication Refill Social History Tobacco Use Types [...] COVID-19? No / Unsure 05/30/2020 5:59 AM NUTRITION SERVICES ASSOCIATE documented as of this encounter Miscellaneous Notes * Telephone Encounter - Anneliese Chanel RN - 05/29/2020 9:17 AM CST Medication failed the protocol, provider to review and approve the medication order if appropriate. Requested Prescriptions Pending Prescriptions Disp Refills tiZANidine (ZANAFLEX) 2 MG Tablet [Pharmacy Med Name: TIZANIDINE HCL 2 MG TABLET] 15 Tab 0 Sig: TAKE 1 TABLET BY MOUTH NIGHTLY NEEDED FOR MUSCLE SPASMS Not Delegated - Analgesics: Muscle Relaxants Failed - 05/29/2020 8:34 AM Failed - This refill cannot be delegated Passed - Valid encounter within last 6 months Past Office Visits Recent Outpatient Visits 1 week ago [facility] for [facility] month [facility] 2 months ago Allergic reaction, initial encounter [facility] - Alli Bloom MD 4 months ago Hyperlipidemia, unspecified [facility] 9 [facility] Chaim Ureña MD Upcoming Appointments Future Appointments Tomorrow [address] Mammography, [facility] In 2 months Chaim Colon MD [facility] [place] OUTREACH WORKER - Recent and Past Visits Recent Visits Date Type Provider Dept 05/22/20 Office Visit [facility] Colon MD [facility] 04/03/20 Office Visit Chaim Colon MD [facility] 03/07/20 Office Visit Alli Joya MD [facility] 01/22/20 Office Visit Chaim Colon MD [facility] 08/28/19 Office Visit Chaim Colon MD [facility] 05/29/19 Office Visit Mahesh Bains APN, KIAH [place] 04/09/19 Office Visit Mahesh Bains APN, SR. MEDIA MANAGER [facility] Showing recent visits within past 460 days with a meds authorizing provider and meeting all other requirements Future Appointments Date Type Provider Dept 08/25/20 Appointment Chaim Colon MD [facility] Showing future appointments within next 90 days with a meds authorizing provider and meeting all other requirements ITION SERVICES ASSOCIATE documented in this encounter Plan of Treatment Not on file documented as of this encounter Visit Diagnoses Not on filedocumented in this encounter Additional Health Concerns Assessment Noted Time PHQ-9 Depression Total Score: 0 03/07/20 8:00 AM CDT documented as of this encounter Care Teams Elevator Adjuster Relationship Specialty Start Date End Date Chaim Colon MD [address] [place] [address] PCP - General Family Medicine 04/27/16 04/20/21 Mahesh Hutchins MD [address] [place] [address] PCP - General Internal Medicine 04/24/21 06/11/21 Provider, None [place] PCP - General 06/12/21 10/27/21 Tiff Garcia MD [address] [place] [address] [facility] [place] [address] PCP - General Family Medicine 10/28/21 Monae Lee MD Consulting Physician Urology 10/06/15 Matthew Brown DPM #[address] [address] Consulting Physician Podiatry 10/25/16 Lauren Ramey MD #[address] [address] Obstetrics & Gynecology 04/09/19 documented as of this encounter
--- OUTSIDE RECORDS SUMMARY | 2024-11-22 11:38 | XMS_ITS | Encounter Summary ---
Author Organization [facility] Address [address] [facility] [place] [address] Phone Care Team Providers Care Distance Learning Administrator Name Role Phone Monae Lee MD Unavailable [phone] Chaim Colon MD Primary Care Provider [phone] Matthew Brown DPM Unavailable [phone] Lauren Ramey MD Unavailable Unavail able Mahesh Hutchins MD Primary Care Provider [phone] Provider, None Primary Care Provider Unavailabl e Tiff Garcia MD Primary Care Provide r Reason for Visit * Reason Comments Medication Refill Encounter Details Date Type Department Care Team (Late st Contact Info) Description 04/24/2020 Refill [facility] Family [facility] [place] [address] Chaim Colon MD #[address] [address] Medication Refill Social History Tobacco Use Types [...] encounter Miscellaneous Notes * Telephone Encounter - Sujata Bahena RN - 04/25/2020 11:37 AM CDT Medication failed the protocol, provider to review and approve the medication order. Requested Prescriptions Pending Prescriptions Disp Refills zolpidem (AMBIEN) 5 MG Tablet [Pharmacy Med Name: ZOLPIDEM TARTRATE 5 MG TABLET] 30 Tab 0 Sig: TAKE 1 TABLET BY MOUTH NIGHTLY NEEDED Not Delegated - Psychiatry: Anxiolytics/Hypnotics Failed - 04/25/2020 11:37 AM Failed - This refill cannot be delegated Passed - Valid encounter within last 6 months Past Office Visits Recent Outpatient Visits 3 weeks ago Bleeding hemorrhoids [facility] - Chaim Rudolph MD 1 month ago Allergic reaction, initial encounter [facility] - Alli Bloom MD 3 months ago Hyperlipidemia, unspecified hyperlipidemia type [facility] - Chaim Rudolph MD 8 months ago Anxiety [facility] - Chaim Rudolph MD 11 months ago [facility] toenail [facility] left foot [facility], 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 05/29/19 Office Visit Mahesh Bains APN, KIAH [facility] 04/09/19 Office Visit Mahesh Bains APN, SPINDLE REPAIRER [facility] Showing recent visits within past 460 days with a meds authorizing provider and meeting all other requirements Future Appointments No visits were found meeting these conditions. Showing future appointments within next 90 days with a meds authorizing provider and meeting all other requirements 8 weeks ago (02/23/2020) zolpidem (AMBIEN) 5 MG Tablet TAKE 1 TAB BY MOUTH NIGHTLY NEEDED Dispense: 30 Tab? Refills: 0? Start: 02/23/2020? documented in this encounter Plan of Treatment Not on file documented as of this encounter Visit Diagnoses Diagnosis Insomnia, unspecified type documented in this encounter Additional Health Concerns Assessment Noted Time PHQ-9 Depression Total Score: 0 03/07/20 8:00 AM CDT documented as of this encounter Care Teams Distance Learning Administrator Relationship Specialty Start Date End Date Chaim Colon MD #[address] [address] PCP - General Family Medicine 04/27/16 04/20/21 Mahesh Hutchins MD [address] [place] [address] PCP - General Internal Medicine 04/24/21 06/11/21 Provider, None [place] PCP - General 06/12/21 10/27/21 Tiff Garcia MD [address] [place] [address] PCP - General Family Medicine 10/28/21 Monae Lee MD Consulting Physician Urology 10/06/15 Matthew Brown DPM #[address] [address] Consulting Physician Podiatry 10/25/16 Lauren Ramey MD #[address] [address] Obstetrics & Gynecology 04/09/19 documented as of this encounter
--- OUTSIDE RECORDS SUMMARY | 2024-11-22 11:38 | XMS_ITS | Continuity of Care Document ---
Author Organization [facility] Address [address] [place] [address] Phone Care Team Providers Care Soubrette Name Role Phone Hair Ospina MD Unavailable Unavai lable Allergies, Adverse Reactions, Alerts Substance Reaction Status Criticality Penicillins Rash, Swelling, ItchyEyes, Diffi Active No Information Procedures Procedure Date X-ray exam Lumbar 4+ views Independent Medical Examination LIZANDRO Pre Payment Advance Directives Directive Yes / No Effective Date File Name No Information Encounters Encounter Description Practice Location Reason(s) For Visit Diagnoses Date Provider Providers Copied on Encounter Independent Medical Examination LIZANDRO [facility], [address], [id number], tel:[phone] [facility] LIZANDRO (chief complaint) Low back pain, unspecified 2 Anai Martinezoph er. [address] [place] [address], [place], [place], [id number] , [place]. tel: [phone] [facility], [address], [id number], [place] tel:[phone] [facility] No Information 2 Anai Martinezoph er. [address] [facility] [facility] [address], [place], [place], [id number] , [place]. tel:[phone] Family History Family Member Type Diagnosis Age At Onset Sister Problem (finding) Cancer, unknown Payers Payer name Insurance type Covered green party ID Francisco mendoza(s) Exam Works WC [id number] Social History Type Description Quantity Date Captured Comments Alcohol Use Details Unknown Caffeine Use Details Unknown Tobacco Use Status Current non-smoker Smoking Status Never smoker Non-Smoking Tobacco Use Details : No Details Available : No Details Available Sex Female Vital Signs Date / Time: Height Weight BMI Pulse Rate Blood Pressure Temperature Respiratory Rate Body Surface Area Head Circumference Head Circ. Percentile Wt./Cullen. Percentile BMI percentile Pulse Ox Inhaled Ox 10:46 AM 62.00 in 80.739 kg (178.00 lbs) 32.5 6 kg/m eter (2) Chief Complaint And Reason For Visit From encounter dated '12/29/2021 11:15'. LIZANDRO (chief complaint). Description: Dr. Hair OspinaBoard Certified Orthopedic Surgeon with Fellowship Training in Spine SurgeryOrthope[address], [address]. [place], [place] [address]VvvmWendi Richmond is a pleasant 56-year-old female who presents as part of an independent medical examination for a work-related injury sustained on 03/31/2021. 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 She states that she fell onto the left upper extremity to avoid striking her face, and she hit her left knee on the concrete. She had immediate pain in the left upper extremity and left knee, as well as progressive pain in her left upper extremity, left knee, and back throughout the day. The patient was subsequently seen at the emergency room at [facility] for pain in the left upper extremity, left knee, and in her back, per recommendation of her employer. She notes that she also had swelling in the left upper extremity. She underwent x-rays of the back in the emergency room, in addition to an injection of pain medication. The patient was then recommended to see her primary care physician, who subsequently referred her beatris orthopedic surgeon, Dr. Oden. She states that during her course of treatment with Dr. Oden, she was switched to Dr. Swann, who recommended she be treated at a pain management clinic. Of note, the patient began to have radicular symptoms in the left lower extremity approximately 2 weeks after the fall.Today, the patient describes constant throbbing pain in the left side of the low back at the beltline and at the superior aspect of the left buttock. She endorses shooting pain and cold sensations that radiate down the left lower extremity into the dorsal and plantar aspects of the left foot. The patient reports that she also has cold sensation, numbness, and tingling in the left foot andtoes. She notes that she does have numbness in her right foot and less severe pain in the right side of the low back. She relates that her low back pain is more bothersome than her left lower extremity symptoms, noting that her symptoms are 80 percent in the back and 20 percent in the lower extremity. The patient reports that she is unable to ambulate for prolonged periods of time due to her pain. She states that she is able to ambulate approximately 0.5 miles before her pain becomes aggravated. She is unable to lie on her left side as this causes throbbing pain. She states that sitting with more weight on the left buttock exacerbates her pain complaints. The patient relates that her pain li mits her ability to exercise. She has tried to stretch; however, her pain has progressively limitedthese stretches.The patient reports that she has attended formal physical therapy, which included exercises with bands and heat. She reports that she has undergone approximately 5 lumbar epidural steroid injections with pain management, which provided relief for 3 to 4 days before they wore off. She relates that she was recommended to have radiofrequency ablation by pain management. The patient has used ice, heat, Aleve, meloxicam, lidocaine patches, Biofreeze, and Icy Hot for her pain. She notes that these modalities have provided temporary relief, but she has not had lasting relief from anytreatments up to this point. She has not yet undergone nerve blocks or radiofrequency ablation up to this point.The patient reports a history of coccygeal pain after a separate fall in early 2020, which was treated with Dr. Oden. She underwent an MRI of the lumbar spine on 07/23/2020 due to this kristen cygeal pain. She states that this pain resolved 4 to 5 weeks after the MRI scan with ice and cushioning. 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 She states she does have restrictions. She notes that she cannot sit for long periods of time, and she is unable to lift patients. Reason For Referral Reason For Referral No Information Plan Of Treatment Date Type Action Status Referral Ordered: X-ray exam Lumbar 4+ views spine, lumbar ordered History Of Present Illness Encounter Date Complaint History Of Prese nt Illness LIZANDRO Dr. Hair OspinaBoard Certified Orthopedic Surgeon with Fellowship Training in Spine SurgeryOrthope[address], [address]. [place], [place] [address]MwmbWendi Richmond is a pleasant 56-year-old female who presents as part of an independent medical examination for a work-related injury sustained on 03/31/2021. At the time of the injury, the patient reports that she was working at her client's house when she was hit by a screen door, causing her to fall head first onto concrete. She states that she fell onto the left upper extremity to avoid striking her face, and she hit her left knee on the concrete. She had immediate pain in the left upper extremity and left knee, as well as progressive pain in her left upper extremity, left knee, and back throughout the day. The patient was subsequently seen at the emergency room at [facility] for pain in the left upper extremity, left knee, and in her back, per recommendation of her employer. She notes that she also had swelling in the left upper extremity. She underwent x-rays of the back in the emergency room, in addition to an injection of pain medication. The patient was then recommended to see her primary care physician, who subsequently referred her to an orthopedic surgeon, Dr. Oden. She states that during her course of treatment with Dr. Oden, she was switched to Dr. Swann, who recommended she be treated at a pain management clinic. Of note, the patient began to have radicular symptoms in the left lower extremity approximately 2 weeks after the fall.Today, the patient describes constant throbbing pain in the left side of the low back at the beltline and at the superior aspect of the left buttock. She endorses shooting pain and cold sensations that radiate down the left lower extremity into the dorsal and plantar aspects of the left foot. The patient reports that she also has cold sensation, numbness, and tingling in the left foot and toes. She notes that she does have numbness in her right foot and less severe pain in the right side of the low back. She relates that her low back pain is more bothersome than her left lower extremity symptoms, noting that her symptoms are 80 percent in the back and 20 percent in the lower extremity. The patient reports that she is unable to ambulate for prolonged periods of time due to her pain. She states that she is able to ambulate approximately 0.5 miles before her pain becomes aggravated. She is unable to lie on her left side as this causes throbbing pain. She states that sitting with more weight on the left buttock exacerbates her pain complaints. The patient relates that her pain limits her ability to exercise. She has tried to stretch; however, her pain has progressively limited these stretches.The patient reports that she has attended formal physical therapy, which included exercises with bands and heat. She reports that she has undergone approximately 5 lumbar epidural steroid injections with pain management, which provided relief for 3 to 4 days before they wore off. She relates that she was recommended to have radiofrequency ablation by pain management. The patient has used ice, heat, Aleve, meloxicam, lidocaine patches, Biofreeze, and Icy Hot for her pain. She notes that these modalities have provided temporary relief, but she has not had lasting relief from any treatments up to this point. She has not yet undergone nerve blocks or radiofrequency ablation up to this point.The patient reports a history of coccygeal pain after a separate fall in early 2020, which was treated with Dr. Oden. She underwent an MRI of the lumbar spine on 07/23/2020 due to this coccygeal pain. She states that this pain resolved 4 to 5 weeks after the MRI scan with ice and cushioning. 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 She states she does have restrictions. She notes that she cannot sit for long periods of time, and she is unable to lift patients. Functional Status Date Functional Assessmen t No Information Instructions Date Instruction Additional Infor sally Plan of Care:Wendi mujica is a pleasant 56-year-old female who has undergone 2 MRI scans of the lumbar spine, including 1 prior to her fall and 1 after her fall. These MRI scans are from two different facilities, but both reveal foraminal stenosis at L5-S1 bilaterally secondary to a loss of disc height at L5-S1 and facet tissue overgrowth. She indicates to me that the MRI scan performed prior to the fall was done for buttock pain after a separate fall, and that this pain went on to resolve. I do not have any notes at this time that would indicate why that MRI scan was ordered or what her symptoms would have been at that time. There would be value in having that data. Furthermore on this date, the patient has 3 out of 3 positive Lex signs, including pain with simulated truncal rotation, pain with axial loading, and pain with light touch. These would all be potentially nonorganic indicators of pain. Related to Low back pain, unspecified Assessments Type Assessment Date assessment Low back pain, unspecified Patient Care Teams Name Effective Dates (start - stop) Status Members No Information
--- OUTSIDE RECORDS SUMMARY | 2024-11-22 11:38 | XMS_ITS ---
Author Organization [facility] ([address]) Address [address] [place] [address] Care Team Providers Care Nutrition Services Worker Name Role Phone AnthonyYossi Unavailable [phone] REASON FOR VISIT [facility], on tirzepatide, no side effects, reports decreased appetite suppression,meeting caloric, protein, and fluid intake requirements, Desired weight loss: 75 lbs, -2.0 lbs lbs since last visit, -26.0 lbs total, No history MTC or MEN2 or pancreatitis, Concerned about future DMand OA, Abnormal sleep schedule, concerned about apnea Encounters Encounter Location Date Provider Diagnosis [facility] ([address]) [address] [place] [address] 07/25/2024 Yossi Cruz Morbid (severe) obesity due to excess calories E66.01 ; Chronic fatigue, unspecified R53.82 ; Other fatigue R53.83 and Other malaise R53.81 Assessments Encounter Date Diagnosis (ICD Code) Assessment Notes Treatment Notes Treatment Clinical Notes Section Notes 07/25/2024 Morbid (severe) obesity due to excess calories (ICD-10 - E66.01) Tirzepatide as below and BHRT packet provided. Start Probiotics given prior H. pylori and reflux. Patient needs monthly InBody Assessments to continue program. Patient may have them performed outside, but bring in to scan into the system. 07/25/2024 Chronic fatigue, unspecified (ICD-10 - R53.82) 07/25/2024 Other fatigue (ICD-10 - R53.83) 07/25/2024 Other malaise (ICD-10 - R53.81) Plan Of [...] abdomen Frequency: weekly Lot Number/Expiration: Medication Source: 80/20 Solutions Adverse Reaction: None Progress Notes * Wendi ELIZABETHDOB:1965 (59 yo F)Acc No.[id number]:07/25/2024 Weight Loss Patient: Wendi MALIK Provider: Barb Cruz MD :1965 A ge:59 Y S ex:Female Date:07/25/2024 Address:[address] [place] [address] Subjective: * Chief Complaints: * 1 . [...] ot Number/Expiration 1 M edication Source [facility] A dverse Reaction N one * Follow Up: 1 Week (Reason: GLP-1 Agonist Administration) * Billing Information: * Visit Code: * Procedure Codes: 01650 Quell - Weekly (tirzepatide) Tier 2. * Electronic signature of Charu Cruz MD, FAAAAI on 11/22/2024 at 11:38 AM CDT Sign off status: Pending * Provider: Barb Cruz MD Date: 0 07/25/2024 Generated for Genevieve kenyon/Rodriguez/Nida on: 0 11/22/2024 11:38 AM CDT
--- OUTSIDE RECORDS SUMMARY | 2024-11-22 11:39 | XMS_ITS | Encounter Summary ---
Author Organization [facility] Address [address] [facility] [place] [address] Phone Care Team Providers Care Hydro Plant Operator Name Role Phone Monae Lee MD Unavailable [phone] Chaim Colon MD Primary Care Provider [phone] Matthew Brown DPM Unavailable [phone] Lauren Ramey MD Unavailable Unavail able Mahesh Hutchins MD Primary Care Provider [phone] Provider, None Primary Care Provider Unavailabl e Tiff Garcia MD Primary Care Provide r Reason for Visit * Reason Comments Medication Refill Encounter Details Date Type Department Care Team (Late st Contact Info) Description 09/18/2020 Refill [facility] - Family Medicine [facility] [address] [place] [address] Chaim Colon MD [address] [address] Medication Refill Social History Tobacco Use Types [...] have Coronavirus / COVID-19? No / Unsure 08/25/2020 8:29 AM PATTERN ATTENDANT documented as of this encounter Miscellaneous Notes * Telephone Encounter - Sujata Barnes RN - 09/18/2020 11:52 AM CST Last OV 08/25/20. Last Rx 08/25/20 #60 with no refills. Medication failed the protocol, provider to review and approve the medication order if appropriate. Requested Prescriptions Pending Prescriptions Disp Refills tiZANidine (ZANAFLEX) 2 MG Tablet [Pharmacy Med Name: TIZANIDINE HCL 2 MG TABLET] 60 Tablet 0 Sig: Take 1 - 2 pills at night as needed for back pain Not Delegated - Analgesics: Muscle Relaxants Failed - 09/18/2020 8:31 AM Failed - This refill cannot be delegated Passed - Valid encounter within last 6 months Past Office Visits Recent Outpatient Visits 3 weeks ago Chronic [facility] pain greater than 3 [facility] Chiam Rudolph MD 2 months ago Left flank pain [facility] - Chaim Rudolph MD 3 months ago Encounter for screening mammogram for breast cancer [facility] - Chaim Rudolph MD 5 months ago Bleeding hemorrhoids [facility] Chaim Ureña MD 6 months ago Allergic reaction, initial encounter [facility] Alli Quinonez MD Upcoming Appointments Future Appointments In 2 months Chaim Colon MD [facility] - MARIA D Villar ROLLS MILL OPERATOR - Recent and Past Visits Recent Visits Date Type Provider Dept 08/25/20 Office Visit Chaim Colon MD [facility] 06/24/20 Office Visit Chaim Colon MD [facility] 05/22/20 Office Visit Chaim Colon MD [facility] 04/03/20 Office Visit Chaim Colon MD [facility] 03/07/20 Office Visit Alli Joya MD [facility] 01/22/20 Office Visit Chaim Colon MD [facility] 08/28/19 Office Visit Chaim Colon MD [facility] Showing recent visits within past 460 days with a meds authorizing provider and meeting all other requirements Future Appointments Date Type Provider Dept 11/28/20 Appointment Chaim Colon MD [facility] Showing future appointments within next 90 days with a meds authorizing provider and meeting all other requirements ERN ATTENDANT documented in this encounter Plan of Treatment Not on file documented as of this encounter Visit Diagnoses Not on filedocumented in this encounter Additional Health Concerns Assessment Noted Time PHQ-9 Depression Total Score: 0 08/25/19 8:41 AM PATTERN ATTENDANT documented as of this encounter Care Teams Hydro Plant Operator Relationship Specialty Start Date End Date Chaim Colon MD [address] [facility] JOHAN [facility] [place] [address] PCP - General Family Medicine 04/27/16 04/20/21 Mahesh Hutchins MD [address] [place] [address] PCP - General Internal Medicine 04/24/21 06/11/21 Provider, None [place] PCP - General 06/12/21 10/27/21 Tiff Garcia MD [address] [place] [address] [place] [address] PCP - General Family Medicine 10/28/21 Monae Lee MD Consulting Physician Urology 10/06/15 Matthew Brown DPM [address] [address] Consulting Physician Podiatry 10/25/16 Lauren Ramey MD [address] [address] Obstetrics & Gynecology 04/09/19 documented as of this encounter
--- OUTSIDE RECORDS SUMMARY | 2024-11-22 11:39 | XMS_ITS | Referral Summary ---
Author Organization [facility] Address 1 [place] [address] Care Team Providers Care Gas Examiner Name Role Phone Watson Ortiz MD Unavailable Tiff Garcia MD Primary Care Provide r Encounters Date Type Department Care Team Description 11/20/2024 Orders Only [facility] [address] [facility] [address] [place] [address] Lauren Baldwin, RN Macromastia (Primary Dx) from Last 3 Months Allergies Active Allergy Reactions Criticality Noted Date Comments Penicillins Rash Medium 12/29/2021 Sulfamethoxazole-Trimethoprim Medications ergocalciferol (VITAMIN D) 50,000 unit capsule ergocalciferol (vitamin D2) 1,250 mcg (50,000 unit) capsule TAKE 1 CAPSULE BY MOUTH ONE TIME PER WEEK 0 Active dexAMETHasone (DECADRON) 0.1 % ophthalmic solution INSTILL ONE DROP INTO THE LEFT EYE ONCE A DAY. [address] (PROTONIX) 40 mg EC tablet TAKE 1 TABLET BY MOUTH EVERY DAY 90 tablet 2 1 Active Additional Information Patient not taking.Reported on 09/17/2022 estradioL (VIVELLE-DOT) 0.05 mg/24 hr 1 Active rosuvastatin (CRESTOR) 10 mg tablet Take 1 tablet (10 mg total) by mouth nightly 90 tablet 3 1 Active Additional Information Patient not taking.Reported on 09/17/2022 zolpidem (AMBIEN) 5 mg tablet Take 1 tablet (5 mg total) by mouth nightly 30 tablet 1 Active Additional Information Patient not taking.Reported on 09/17/2022 HYDROcodone-ac etaminophen (NORCO) 5-325 mg per tablet TAKE 1 TABLET EVERY 4-6 HOURS FOR PAIN. 3 Active Active Problems Problem Noted Date Diagnosed Date S/P lumbar laminectomy 12/30/2022 Assessment & Plan (12/30/2022 10:06 AM CDT): Acute on chronic- not at goal S/P laminectomy L5-S1 with Dr. López Encouraged to continue with PT as ordered by ortho and to continue wearing back brace as directed Follow up with ortho as scheduled Continue to monitor Preoperative clearance 09/17/2022 Assessment & Plan (09/17/2022 1:26 PM CONSUMER SERVICES CONSULTANT): Pt has had previous surgery without complication from anesthesia. Pt has never been told she has a small or difficult airway to intubate. Pt appears to be a good candidate for surgery with low risk for complication due to anesthesia. Revised cardiac risk index for preoperative risk score: 3.9% Creatinine clearance cannot be calculated (Patient's most recent lab result is older than the maximum 90 days allowed.) -Lab work ordered. -Patient cleared for surgery pending results of lab work. Wellness examination 05/14/2021 Assessment & Plan (05/14/2021 10:06 AM CDT): Ordered CBC, cmp, lipid, hgb a1c, HIV, hep c, TSH, and free t4 Colonoscopy pt states she had it done this year and will need a repeat in 5 years Pap smear states she had one this year as well and was wnl Mammo ordered for 05/30 F/u in 1 year Weight gain 05/14/2021 Assessment & Plan (05/14/2021 9:37 AM CDT): Possibly due to estrogen patch TSH to evaluate for thyroid etiology Fatigue 05/14/2021 Assessment & Plan (05/14/2021 10:06 AM CDT): Possibly 2/2 weight gain TSH Vitamin b12 Cbc ordered to evaluate for thyroid disease and anemia Patient already taking vitamin D for vitamin d deficiency Vitamin D deficiency 05/14/2021 Assessment & Plan (05/14/2021 9:39 AM CDT): Continue taking vitamin D and monitor Could be contributing to fatigue Class 1 obesity due to exces s calories without serious comorbidity with body mass index (BMI) of 34.0 to 34.9 in adult 05/14/2021 Assessment & Plan (12/30/2022 10:10 AM CDT): Chronic condition- worsening Not at/near goal of BMI <30 Recommend healthy diet- low calorie, low carb, low fat, portion control can be beneficial Increase activity once able and released from orthopedic care- recommend 30 minutes daily or 150 minutes per week Follow up with pcp in 2 months for annual exam Fasting labs ordered Assessment & Plan (09/17/2022 7:30 AM CONSUMER SERVICES CONSULTANT): HPI: Condition is not at/near goal goal BMI <30 A&P: Healthy, high-protein, lower carbohydrate, lower fat lifestyle and exercise for 150min/week recommended Assessment & Plan (05/14/2021 9:40 AM CDT): She was counseled on the importance of maintaining a healthy weight and the risks of obesity. Weight loss recommended. Continue with diet and exercise as tolerated Evaluate for thyroid as etiology Chronic left-sided low back pain with left-sided sciatica 05/14/2021 Assessment & Plan (12/30/2022 10:05 AM CDT): Chronic- not at goal We discussed patient pain and she is encouraged to follow up with her orthopedic surgeon to discuss her ongoing pain Consult ordered for pain management Patient informed her PCP does not prescribe controlled substances for pain- so she will need to obtain a pain management provider to monitor and treat Assessment & Plan (09/17/2022 1:26 PM CONSUMER SERVICES CONSULTANT): -chronic, not at goal Pt has had previous surgery without complication from anesthesia. Pt has never been told she has a small or difficult airway to intubate. Pt appears to be a good candidate for surgery with low risk for complication due to anesthesia. Revised cardiac risk index for preoperative risk score: 3.9% Creatinine clearance cannot be calculated (Patient's most recent lab result is older than the maximum 90 days allowed.) -Lab work ordered. -Patient cleared for surgery pending results of lab work. Assessment & Plan (05/14/2021 9:59 AM CDT): Imaging negative as per pt Continue following with orthopedic surgeon and pain management physician Helicobacter pylori (H. pylori) infection 2020 Overview (10/28/2020): Added automatically from request for surgery [id number] Assessment & Plan (05/14/2021 10:05 AM CDT): Continue following with GI for management Immunizations Immunization Administration Dates Next Due Influenza, Quadrivalent, Spl it, Preservative Free, Intramuscular 05/05/2017 Influenza, Trivalent, IM (MDV) 07/18/2013 Influenza, Unspecified 09/17/2022(Deferr ed: Patient Refused),02/16/2020(Deferred: Patient Refused) MMR 08/03/2013 Td, adsorbed 03/08/1995 Tdap 08/11/2018 Social History Tobacco Use Types Packs/Day Years Used Date Smoking Tobacco: Never Tobacco Cessation:Counseling Given: Not Answered AUDIT-C Answer Date Recorded Q1: How often do you have a drink containing alc ohol? Never 11/07/2020 Average Number of Drinks Not on file 021 Frequency of Binge Drinking Not on file 10/17 PHQ-2 Answer Date Recorded PHQ-2 Total Score (If total score is 3 or more points, staff should administer the PHQ-9) 0 12/30/2022 Personal Safety Answer Date Recorded Getting School Help Needed Not on file 07/21 Comments Unknown Sex and Gender Information Value Date Recorded Sex Assigned at Not on file Legal Sex Female 1:08 PM CONSUMER SERVICES CONSULTANT Gender Identity Not on file Sexual Orientation Not on file Last Filed Vital Signs Vital Sign Reading Time Taken Comments Blood Pressure 122/74 12/30/2022 8:48 AM CDT Pulse 60 12/30/2022 8:24 AM CDT Temperature 36.6 C (97.9 F) 09/17/2022 12:59 PM CONSUMER SERVICES CONSULTANT Respiratory Rate 18 12/30/2022 8:24 AM CDT Oxygen Saturation 97% 12/30/2022 8:24 AM CDT Inhaled Oxygen Concentration - - Weight 90.5 kg (199 lb 9.6 oz) 04/09/2024 8:05 A M CDT Height 157.5 cm (5' 2 ) 04/09/2024 8:05 AM CDT Body Mass Index 36.51 04/09/2024 8:05 AM CDT Plan of Treatment Not on file Procedures Procedure Name Priority Date/Time Associated Diagnosis Comments HEPATITIS C ANTIBODY Routine 05/14/2021 9:30 AM CDT Wellness examination COLONOSCOPY Routine 07/25/2020 from Last 3 Months or Most Recently Relevant to Health Maintenance Results * Hepatitis C antibody (05/14/2021 9:30 AM CDT) Hep C Ab Nonreactive Nonreactive ADOLFO PIEDRA ([place]) Comment: Interpretive Data Nonreactive: Antibodies to HCV not detected. Does NOT exclude the possibility of recent exposure to HCV. Equivocal: Equivocal for HCV antibodies. Supplemental molecular testing will be automatically performed to determine infection status in accordance with current CDC screening recommendations. Reactive: Positive for HCV antibodies. This may represent current or past HCV infection. Supplemental molecular testing will be automatically performed to determine current infection status in accordance with current CDC screening recommendations. Interpretive data was last revised on 2019. Testing performed by: [facility], [address] [place] [address]., [address] Blood 05/14/2021 9:30 AM CDT 05/14/2021 12:30 PM CDT Tiff Garcia MD LAB MICROBIOLOGY - NERAL ORDERABLES Final Result ADOLFO PIEDRA ([place]) 1 [facility] Department [place] [address] * Colonoscopy (07/25/2020) Anatomical Region Laterality Modality Other us Historical Provider ENDOSCOPY PROCEDURES Marcelina l Result from Last 3 Months or Most Recently Relevant to Health Maintenance Insurance AET[employer] SIG [id number] [facility] CHOICE PLUS [facility] HMO/PPO Address: [address] [address] [place], [place] [id number] [place] [address] [facility] ACCESS CHOICE [facility] CHOICE PLUS [facility] HMO/PPO Address: [address] [address] [place] [address] [address] [id number] [facility] ACCESS CHOICE WORKERS COMPENSATION GENERIC WORKERS COMPENSATION GENERIC Care Teams Gas Examiner Relationship Specialty Start Date End Date Tiff Garcia MD [address] [place] [address] [address] PCP - General Family Medicine 05/14/21 Watson Ortiz MD Consulting Physician Gastroenterology 01/01/21
--- OUTSIDE RECORDS SUMMARY | 2024-11-22 11:39 | XMS_ITS | Encounter Summary ---
Author Organization [facility] Address [address] [facility] [place] [address] Phone Care Team Providers Care Lehr Loader Name Role Phone Monae Lee MD Unavailable [phone] Chaim Colon MD Primary Care Provider [phone] Matthew Brown DPM Unavailable [phone] Lauren Ramey MD Unavailable Unavail able Mahesh Hutchins MD Primary Care Provider [phone] Provider, None Primary Care Provider Unavailabl e Tiff Garcia MD Primary Care Provide r Reason for Visit * Reason Comments Medication Refill Encounter Details Date Type Department Care Team (Late st Contact Info) Description 10/13/2020 Refill [facility] - Family Medicine [facility] [place] [address] [place] [address] Chaim Colon MD [address] [address] Medication Refill Social History Tobacco Use Types Packs/Day Years Used Date Smoking Tobacco: Never Smokeless Tobacco: Never Alcohol Use Standard Drinks/Week Comments No 0 (1 standard drink = 0.6 oz pur e alcohol) PHQ-2 Answer Date Recorded Total Score - Questions 1-9 0 02/2021 Sexually Active Control Partners Comments [...] Telephone Encounter - Danae Singh RN - 10/13/2020 11:33 AM CDT PRN medication requires review from provider - Refills Medication failed the protocol, provider to review and approve the medication order if appropriate. Requested Prescriptions Pending Prescriptions Disp Refills tiZANidine (ZANAFLEX) 2 MG Tablet [Pharmacy Med Name: TIZANIDINE HCL 2 MG TABLET] 60 Tablet Sig: TAKE 1 - 2 PILLS AT NIGHT NEEDED FOR BACK PAIN Not Delegated - Analgesics: Muscle Relaxants Failed - 10/13/2020 7:30 AM Failed - This refill cannot be delegated Passed - Valid encounter within last 6 months Past Office Visits Recent Outpatient Visits 1 month ago Chronic back pain greater than 3 months duration [facility] Chaim Ureña MD 3 months ago Left flank pain [facility] Chaim Ureña MD 4 months ago Encounter for screening mammogram for breast cancer [facility] Chaim Ureña MD 6 months ago Bleeding hemorrhoids [facility] Chaim Ureña MD 7 months ago Allergic reaction, initial encounter [facility] Alli Quinonez MD Upcoming Appointments Future Appointments In 1 month Chaim Colon MD [facility] [place] [facility] SAP PPM CONSULTANT - Recent and Past Visits Recent Visits [...] Depression Total Score: 0 08/25/19 8:41 AM RESEARCH WORKER ENCYCLOPEDIA documented as of this encounter Care Teams Lehr Loader Relationship Specialty Start Date End Date Chaim Colon MD [address] [facility] JOHAN [address] [place], [place] [address], [place] [address] PCP - General Family Medicine 04/27/16 04/20/21 Mahesh Hutchins MD [address] [place] [address] PCP - General Internal Medicine 04/24/21 06/11/21 Provider, None [place] PCP - General 06/12/21 10/27/21 Tiff Garcia MD [address] [place] [address] [facility] [place] [address] PCP - General Family Medicine 10/28/21 Monae Lee MD Consulting Physician Urology 10/06/15 Matthew Brown DPM #[address] [address] Consulting Physician Podiatry 10/25/16 Lauren Ramey MD #[address] [address] Obstetrics & Gynecology 04/09/19 documented as of this encounter
--- OUTSIDE RECORDS SUMMARY | 2024-11-22 11:39 | XMS_ITS | Clinical Summary ---
Author Organization [facility] Address [address] [place] [address] Care Team Providers Care Grey Goods Tester Name Role Phone Watson Ortiz MD Unavailable Tiff Garcia MD Primary Care Provide r Allergies Active Allergy Reactions Criticality Noted Date [...] 09/17/2022 Assessment & Plan (09/17/2022 1:26 PM RESORT MANAGER): Pt has had previous surgery without complication [...] well and was wnl Mammo ordered for 11/13 F/u in 1 year Weight gain 05/14/2021 [...] ordered Assessment & Plan (09/17/2022 7:30 AM RESORT MANAGER): HPI: Condition is not at/near goal goal [...] treat Assessment & Plan (09/17/2022 1:26 PM RESORT MANAGER): -chronic, not at goal Pt has had [...] (10/28/2020): Added automatically from request for surgery [id number] Assessment & Plan (05/14/2021 10:05 AM CDT): Continue following with GI for management Encounters Date Type Department Care Team Description 11/20/2024 Orders Only [facility] [address] [place] [address] [place] [address] Lauren Baldwin RN Macromastia (Primary Dx) from Last 3 Months Immunizations Immunization Administration Dates Next Due Influenza, Quadrivalent, Spl it, Preservative Free, Intramuscular 05/05/2017 Influenza, Trivalent, IM (MDV) 07/18/2013 Influenza, Unspecified 09/17/2022(Deferr ed: Patient Refused),02/16/2020(Deferred: Patient Refused) MMR 08/03/2013 Td, adsorbed 03/08/1995 Tdap 08/11/2018 Surgical History Surgery Date Site/Laterality Comments CORNEAL TRANSPLANT PARTIAL HYSTERECTOMY Family History Medical History Relation Name Comments Heart attack Father Heart disease Mother Brain cancer Sister 1 Colon cancer Sister 2 Relation Name Status Comments Father Mother Sister 1 Sister 2 Social History Tobacco Use Types Packs/Day Years [...] on file Legal Sex Female 1:08 PM RESORT MANAGER Gender Identity Not on file Sexual Orientation Not on file Obstetrics History Last Filed Vital Signs Vital Sign Reading Time Taken Comments Blood Pressure 122/74 12/30/2022 8:48 AM CDT Pulse 60 12/30/2022 8:24 AM CDT Temperature 36.6 C (97.9 F) 09/17/2022 12:59 PM RESORT MANAGER Respiratory Rate 18 12/30/2022 8:24 AM CDT Oxygen Saturation 97% 12/30/2022 8:24 AM CDT Inhaled Oxygen Concentration - - Weight 90.5 kg (199 lb 9.6 oz) 04/09/2024 8:05 A M CDT Height 157.5 cm (5' 2 ) 04/09/2024 8:05 AM CDT Body Mass Index 36.51 04/09/2024 8:05 AM CDT Plan of Treatment Health Maintenance Due Date Last Done Comments Cervical Cancer Screening 1965 Hepatitis B Screening 01/25/1982 Zoster Vaccine (1 of 2) 01/25/2014 Regular Well Visit/Exam 18-64 05/14/2022 05/14/2021 Depression Screening 12/31/2023 12/30/2022, 09/17/2022, 05/14/2021, Additional history exists Covid-19 Vaccine ( season) 2024 04/20/2021, 03/20/2021 Breast Cancer Screening-Mammogram 02/24/2025 02/25/2024, 02/25/2024, 11/02/2021, Additional history exists Influenza Vaccine (Season Ended) 2025 05/05/2017, 07/18/2013 Colon Cancer Screening-Colonoscopy 07/25/2025 07/25/2020 DTaP/Tdap/Td Vaccine (2 - Td or Tdap) 08/11/2028 08/11/2018, 03/08/1995 Colon Cancer Screening-CT Colonography Discontinued 07/25/2020 Colon Cancer Screening-DNA Stool Discontinued 07/25/2020 Colon Cancer Screening-FIT Discontinued 07/25/2020 Colon Cancer Screening-Sigmoidoscopy Discontinued 07/25/2020 Hepatitis C Screening Completed 05/14/2021 Pneumococcal vaccine <65 Aged Out No longer eligible based on patient's age to complete this topic Procedures Procedure Name Priority Date/Time Associated Diagnosis Comments HEPATITIS C ANTIBODY Routine 05/14/2021 9:30 AM CDT Wellness examination COLONOSCOPY Routine 07/25/2020 from Last 3 Months or Most Recently Relevant to Health Maintenance Results * Hepatitis C antibody (05/14/2021 9:30 AM CDT) Hep C Ab Nonreactive Nonreactive ADOLFO PIEDRA ([place]) Comment: Interpretive Data Nonreactive: Antibodies to HCV [...] last revised on 2019. Testing performed by: [facility], [address] [place] [address]., [address] Blood 05/14/2021 9:30 AM CDT 05/14/2021 12:30 PM CDT Tiff Garcia MD LAB MICROBIOLOGY - NERAL ORDERABLES Final Result ADOLFO PIEDRA ([place]) 1 [facility] Department [place] [address] * Colonoscopy (07/25/2020) Anatomical Region Laterality Modality Other Historical Provider ENDOSCOPY PROCEDURES Marcelina l Result from Last 3 Months or Most Recently Relevant to Health Maintenance Insurance AETNA SIG [id number] [facility] CHOICE [place] [place] [address] ANTH ACCESS CHOICE [facility] CHOICE PLUS ANTHEM ACCESS CHOICE [address] [phone] WORKERS COMPENSATION GENERIC WORKERS COMPENSATION GENERIC Care Teams Grey Goods Tester Relationship Specialty Start Date End Date Tiff Garcia MD [address] [place] [address] [place] [address] PCP - General Family Medicine 05/14/21 Watson Ortiz MD Consulting Physician Gastroenterology 01/01/21
--- OUTSIDE RECORDS SUMMARY | 2024-11-22 11:39 | XMS_ITS | Encounter Summary ---
Author Organization [facility] Address [address] [facility] [place] [address] Phone Care Team Providers Care Appraisal Manager Name Role Phone Monae Lee MD Unavailable Matthew Brown DPM Unavailable [phone] Lauren Ramey MD Unavailable Unavail able Tiff Garcia MD Primary Care Provide r Encounter Details Date Type Department Care Team (Latest Contact Info) Description 02/21/2024 Transcribe Orders [facility] Scheduling [address] [place] [address] Rony Henderson MD [address] [place] [address] Encounter for screening mammogram for malignant neoplasm of breast (Primary Dx) Social History Tobacco Use Types Packs/Day Years Used Date Smoking Tobacco: Never Smokeless Tobacco: Never Alcohol Use Standard Drinks/Week Comments No 0 (1 standard drink = 0.6 oz pur e alcohol) PHQ-2 Answer Date Recorded Total Score - Questions 1-9 0 02/2021 Sexually Active Control Partners Comments Not Currently Male Comments No Sex and Gender Information [...] as of this encounter Visit Diagnoses Diagnosis Encounter for screening mammogram for malignant neoplasm of breast- Primary Other screening mammogram documented in this encounter Additional Health Concerns Assessment Noted Time PHQ-9 Depression Total Score: 0 08/25/19 21 8:41 AM TOLL LINEMAN documented as of this encounter Care Teams Appraisal Manager Relationship Specialty Start Date End Date Tiff Garcia MD [address] [place] [address] [address] PCP - General Family Medicine 10/28/21 Monae Lee MD Consulting Physician Urology 10/06/15 Matthew Brown DPM Consulting Physician Podiatry 10/25/16 Lauren Ramey MD Obstetrics & Gynecology 04/09/19 documented as of this encounter
--- OUTSIDE RECORDS SUMMARY | 2024-11-22 11:39 | XMS_ITS | Encounter Summary ---
Author Organization [facility] Address [address] [facility] [place] [address] Phone Care Team Providers Care Supervisor Pumping Station Name Role Phone Monae Lee MD Unavailable [phone] Chaim Colon MD Primary Care Provider [phone] Matthew Brown DPM Unavailable [phone] Lauren Ramey MD Unavailable Unavail able Mahesh Hutchins MD Primary Care Provider [phone] Provider, None Primary Care Provider Unavailabl e Tiff Garcia MD Primary Care Provide r Reason for Visit * Reason Comments Medication Refill Encounter Details Date Type Department Care Team (Late st Contact Info) Description 12/21/2020 Refill [facility] - Family Medicine [facility] [address] [place] [address] Chaim Colon MD [address] [address] Medication Refill Social History Tobacco Use Types [...] have Coronavirus / COVID-19? No / Unsure 11/28/2020 10:49 AM CDT documented as of this encounter Miscellaneous Notes * Telephone Encounter - Danae Singh RN - 12/22/2020 2:02 PM CDT The original prescription was discontinued on 11/28/2020 by Chaim Colon MD for the followingreason: Therapy completed documented in this encounter Plan of Treatment Not on file documented as of this encounter Visit Diagnoses Not on filedocumented in this encounter Additional Health Concerns Assessment Noted Time PHQ-9 Depression Total Score: 0 08/25/19 8:41 AM RETAIL COSMETICS SALES BEAUTY ADVISOR documented as of this encounter Care Teams Supervisor Pumping Station Relationship Specialty Start Date End Date Chaim Colon MD #[address] [address] PCP - General Family Medicine 04/27/16 04/20/21 Mahesh Hutchins MD [address] [place] [address] PCP - General Internal Medicine 04/24/21 06/11/21 Provider, None [place] PCP - General 06/12/21 10/27/21 Tiff Garcia MD [address] [place] [address] PCP - General Family Medicine 10/28/21 Monae Lee MD Consulting Physician Urology 10/06/15 Matthew Brown DPM #[address] [address] Consulting Physician Podiatry 10/25/16 Lauren Ramey MD #[address] [address] Obstetrics & Gynecology 04/09/19 documented as of this encounter
--- OUTSIDE RECORDS SUMMARY | 2024-11-22 11:39 | XMS_ITS | Encounter Summary ---
Author Organization [facility] Address [address] [facility] [place] [address] Phone Care Team Providers Care Mover Helper Name Role Phone Monae Lee MD Unavailable [phone] Chaim Colon MD Primary Care Provider [phone] Matthew Brown DPM Unavailable [phone] Lauren Ramey MD Unavailable Unavail able Mahesh Hutchins MD Primary Care Provider [phone] Provider, None Primary Care Provider Unavailabl e Tiff Garcia MD Primary Care Provide r Reason for Visit * Reason Comments Medication Refill Encounter Details Date Type Department Care Team (Late st Contact Info) Description 11/22/2020 Refill [facility] - Family Medicine [facility] [address] [place] [address] Chaim Colon MD [address] [address] Medication Refill Social History Tobacco Use Types [...] encounter Miscellaneous Notes * Telephone Encounter - Leslie Parry RN - 11/24/2020 3:32 PM CDT Medication failed the protocol, provider to review and approve the medication order if appropriate. Last OV 08/25/20, F/U 11/28/20, last Rx 10/13/20 Leslie ALFORD Requested Prescriptions Pending Prescriptions Disp Refills tiZANidine (ZANAFLEX) 2 MG Tablet [Pharmacy Med Name: TIZANIDINE HCL 2 MG TABLET] 60 Tablet 1 Sig: TAKE 1 TO 2 TABLETS BY MOUTH EVERY NIGHT NEEDED BACK PAIN [facility] Not Delegated - Analgesics: Muscle Relaxants Failed - 11/22/2020 10:22 AM Failed - This refill cannot be delegated Passed - Valid encounter within last 6 months Past Office Visits Recent Outpatient Visits 3 months ago Chronic back pain greater than 3 months duration [facility] Chaim Ureña MD 5 months ago Left flank pain [facility] Chaim Rudolph MD 6 months ago Encounter for screening mammogram for breast cancer [facility] Chaim Ureañ MD 7 months ago Bleeding hemorrhoids [facility] Chaim Rudolph MD 8 months ago Allergic reaction, initial encounter [facility] Alli Quinonez MD Upcoming Appointments Future Appointments In 4 days Chaim Colon MD [facility] - Recent and Past Visits Recent Visits [...] Depression Total Score: 0 08/25/19 8:41 AM COAL CHEMIST documented as of this encounter Care Teams Mover Helper Relationship Specialty Start Date End Date Chaim Colon MD #2 [facility] [address] [place] [address] PCP - General Family Medicine 04/27/16 04/20/21 Mahesh Hutchins MD [address] [place] [address] PCP - General Internal Medicine 04/24/21 06/11/21 Provider, None [place] PCP - General 06/12/21 10/27/21 Tiff Garcia MD [address] [place] [address] [place], [place] [address], [place] [address] PCP - General Family Medicine 10/28/21 Monae Lee MD Consulting Physician Urology 10/06/15 Matthew Brown DPM #[address] [address] Consulting Physician Podiatry 10/25/16 Lauren Ramey MD #[address] [address] Obstetrics & Gynecology 04/09/19 documented as of this encounter
--- OUTSIDE RECORDS SUMMARY | 2024-11-22 11:39 | XMS_ITS | Encounter Summary ---
Author Organization [facility] Address [address] [facility] [place] [address] Phone Care Team Providers Care High School Music Director Name Role Phone Monae Lee MD Unavailable [phone] Chaim Colon MD Primary Care Provider [phone] Matthew Brown DPM Unavailable [phone] Lauren Ramey MD Unavailable Unavail able Mahesh Hutchins MD Primary Care Provider [phone] Provider, None Primary Care Provider Unavailabl e Tiff Garcia MD Primary Care Provide r Reason for Visit * Reason Comments Medication Refill Encounter Details Date Type Department Care Team (Late st Contact Info) Description 12/25/2020 Refill [facility] - Family Medicine [facility] #2 [place] [address] Chaim Colon MD #[address] [address] Medication Refill Social History Tobacco Use Types [...] Telephone Encounter - Danae Singh RN - 12/26/2020 8:51 AM CDT The original prescription was discontinued on 07/25/2020 by Emmett Ballard, DO See patient MyChart note below * Telephone Encounter - Danae Singh RN - 12/26/2020 8:50 AM CDT December 25, 2020 Wendi Richmond to Chaim Colon MD 9:02 PM I didn't request a refill received a call from danae the nurse. [facility] * Telephone Encounter - Danae Singh RN - 12/25/2020 1:58 PM CDT LVM for pt to return call to office - verify if patient is taking this medication - last fill was in September for 90 days documented in this encounter Plan of Treatment Not on file documented as of this encounter Visit Diagnoses Not on filedocumented in this encounter Additional Health Concerns Assessment Noted Time PHQ-9 Depression Total Score: 0 08/25/19 21 8:41 AM POURER OFF documented as of this encounter Care Teams High School Music Director Relationship Specialty Start Date End Date Chaim Colon MD #[address] [address] PCP - General Family Medicine 04/27/16 04/20/21 Mahesh Hutchins MD [address] [place] [address] PCP - General Internal Medicine 04/24/21 06/11/21 Provider, None [place] PCP - General 06/12/21 10/27/21 Tiff Garcia MD [address] [address] PCP - General Family Medicine 10/28/21 Monae Lee MD Consulting Physician Urology 10/06/15 Matthew Brown DPM #[address] [address] Consulting Physician Podiatry 10/25/16 Lauren Ramey MD #[address] [address] Obstetrics & Gynecology 04/09/19 documented as of this encounter
--- OUTSIDE RECORDS SUMMARY | 2024-11-22 11:39 | XMS_ITS | Clinical Summary ---
Author Organization [facility] Address [address], [facility] [place] [address] [place] [address] Phone Care Team Providers Care Linen Room Attendant Name Role Phone Monae Lee MD Unavailable [phone] Matthew Brown DPM Unavailable [phone] Lauren Ramey MD Unavailable Unavail able Tiff Garcia MD Primary Care Provide r Allergies Active Allergy Reactions Criticality Noted Date Comments Ampicillin Swelling 09/12/2018 Amoxicillin-Pot Clavulanate Itching 04/02/20 16 Azithromycin Rash 03/23/2018 Latex Itching 09/12/2018 Nitrofurantoin Hives 05/18/2017 Penicillins Itching Sulfamethoxazole-Trimethoprim Swelling High 2014 Other reaction(s): Swelling Other reaction(s): Other Medications cyclobenzaprine (FLEXERIL) 5 MG Tablet Take 1 Tablet by mouth nightly as needed for Muscle spasms for up to 30 doses. 30 Tablet 1 Active Additional Information Patient not taking.Reported on 04/18/2024 dexamethasone (DECADRON) 0.1 % Solution INSTILL ONE DROP INTO THE LEFT EYE ONCE A DAY. 1 Active rosuvastatin (CRESTOR) 10 MG Tablet Take 1 Tablet by mouth nightly. 90 Tablet 3 1 Active Additional Information Patient not taking.Reported on 04/06/2021 HYDROcodone-paul taminophen (NORCO) 10-325 MG TabletIndicatio ns:Chronic pain syndrome Take 1 Tablet by mouth every 8 hours as needed for Moderate or more severe pain. 30 Tablet 1 Active ergocalciferol (VITAMIN D) 96087 UNIT CapsuleIndicati ons:Vitamin D deficiency Take 1 Capsule by mouth once a week. 12 Capsule 1 Active Additional Information Patient not taking.Reported on 04/18/2024 Active Problems Problem Noted Date Diagnosed Date H. pylori infection 04/06/2021 Memory loss 08/25/2020 Bilateral pendulous breasts 08/25/2020 Abnormal x-ray of lumbar spine 06/29/2020 Chronic back pain greater than 3 months duration 06/29/2020 Osteoarthritis of spine with radiculopathy, lumb ar region 06/29/2020 Chronic low back pain with sciatica 06/24/2020 Left flank pain 06/24/2020 Bleeding hemorrhoids 04/03/2020 Muscle strain 01/22/2020 Anxiety 08/28/2019 Anemia, normocytic normochromic 08/28/2019 MARY (obstructive sleep apnea) 05/07/2019 Seasonal allergies 11/14/2018 Hyperglycemia 09/02/2018 Choking sensation 08/11/2018 Obesity (BMI 30-39.9) 02/03/2018 Adjustment reaction with anxiety and depression 05/24/2017 Pelvic pain in female 02/28/2017 Uterine leiomyoma 02/22/2017 Gastrocnemius equinus 10/25/2016 Heel spur 10/25/2016 Obesity 10/18/2016 Insomnia 10/18/2016 Gastroesophageal reflux disease without esophagi tis 06/01/2016 Hyperlipidemia 12/11/2015 Chronic pain syndrome 06/09/2015 Vitamin D deficiency 06/09/2015 Resolved Problems Problem Noted Date Diagnosed Date Resolved Date Plantar fasciitis, right 10/25/201612/2017 Colon cancer 12/11/2015 Overview (07/07/2015): Polyp screening Dyslipidemia 12/25/2015 Immunizations Immunization Administration Dates Next Due Covid-19, Mrna, Lnp-s, PF, 1 00 mcg/0.5 mL Dose (Moderna) 03/20/2021 Influenza Vaccine greater than 3 yrs 07/18/2013 Influenza Vaccine, Quadrivalent, PF 05/05/2017 Influenza, Seasonal, Injectable, Undefined 07/18 MMR Vaccine 08/03/2013 TD VACCINE 03/08/1995 TDAP Vaccine 08/11/2018 Family History Medical History Relation Name Comments Other-comment Brother 1 scarred lung Other-comment Brother 2 aspiration Other-comment Brother 3 murdered Heart Attack Father Heart Disease Father Heart Surgery Father Hypertension Father maybe Heart Disease Mother High Cholesterol Mother Hypertension Mother Cancer Sister 1 brain Cancer Sister 2 colon Cancer Sister 3 cervical Other-comment Sister 4 GSW at age 14 Relation Name Status Comments Brother 1 Alive Brother 2 Brother 3 Father Mother Alive Sister 1 Sister 2 Sister 3 Alive Sister 4 Social History Tobacco Use Types Packs/Day Years Used Date Smoking Tobacco: Never Smokeless Tobacco: Never Tobacco Cessation:Counseling Given: No Alcohol Use Standard Drinks/Week Comments No 0 [...] file Not on file Not on file Last Filed Vital Signs Vital Sign Reading Time Taken Comments Blood Pressure 148/88 04/18/2024 9:41 AM CDT Pulse 52 04/18/2024 9:41 AM CDT Temperature 36.1 C (97 F) 04/18/2024 9:41 AM CDT Respiratory Rate 24 04/06/2021 8:23 AM CDT Oxygen Saturation 98% 04/18/2024 9:41 AM CDT Inhaled Oxygen Concentration - - Weight 89.8 kg (198 lb) 04/18/2024 9:41 AM CDT Height 157.5 cm (5' 2 ) 04/18/2024 9:41 AM CDT Body Mass Index 36.21 04/18/2024 9:41 AM CDT Plan of Treatment Health Maintenance Due Date Last Done Comments Hepatitis C Virus (HCV) Screening 1965 Cologuard 01/25/2014 Immunochemical Fecal Occult Blood 01/25/2014 Pneumococcal Immunization (50+ years) (1 of 1 - PCV) 01/25/2014 Zoster Immunization (2 of 2) 08/17/2023 06/22/2023 Influenza Immunization (#1) 03/18/202404/17, 07/18/2013, 07/18/2013 SARS-COV-2 Immunization (3 - season) 2024 04/20/2021, 03/20/2021 Mammogram 02/24/2025 02/25/2024, 10/16, 05/30/2020, Additional history exists Td Immunization Every 10 Years (Adults With 1 Tdap) 08/11/2028 08/11/2018, 03/08/1995 Colonoscopy 07/25/2030 07/25/2020, 02/2021, 01/15/2015, Additional history exists Colorectal Cancer Screening 07/25/2030 Respiratory Syncytial Virus (RSV) Immunization (Adult) (1 - 1-dose 75+ series) 01/25/2039 07/25/2020, 02/2021, 01/15/2015, Additional history exists Hepatitis B Immunization Aged Out No longer eligible based on patient's age to complete this topic Meningococcal Immunization (ACWY) Aged Out No longer eligible based on patient's age to complete this topic Rotavirus Immunization Aged Out No lo nger eligible based on patient's age to complete this topic Procedures Procedure Name Priority Date/Time Associated Diagnosis Comments KALANI SCREENING BILATERAL DIGITAL W CAD W ROMEL Routine 02/25/2024 10:25 AM CDT Encounter for screening mammogram for malignant neoplasm of breast HM COLONOSCOPY Routine 08/23/2014 from Last 3 Months or Most Recently Relevant to Health Maintenance Results * KALANI SCREENING BILATERAL DIGITAL W CAD W ROMEL (02/25/2024 10:25 AM CDT) Anatomical Region Laterality Modality breast Bilateral Mammography 02/25/2024 10:2 9 AM CDT Narrative 02/27/2024 12:18 PM CDT - KALANI SCREENING BILATERAL DIGITAL W CAD W ROMEL BILATERAL DIGITAL SCREENING MAMMOGRAM 3D/2D WITH CAD WITH MEDIOLATERAL OBLIQUE CRANIOCAUDAL: 02/25/2024 The study was acquired using digital technology and interpreted from soft copy. Current study was also evaluated with ICAD version 7.2. 2D digital mammographic views, as well as 3D digital tomosynthesis were performed in the CC and MLO projections. CLINICAL: Routine screening. Patient has no complaints. No personal history of cancer. No family history of breast cancer. COMPARISONS: Comparison is made to exams dated: 10/28/2021, 05/30/2020, and 04/17/2019 [facility]. BREAST TISSUE:The tissue of both breasts is heterogeneously dense. This may lower the sensitivity of mammography. FINDINGS: No significant masses, calcifications, or other findings are seen in either breast. There has been no significant interval change. IMPRESSION: BI-RAD 1 NEGATIVE There is no mammographic evidence of malignancy. A 1 year screening mammogram is recommended. A letter will be sent to the patient with these results. The patient will be entered into a reminder system with a target due date of 1 year for her next screening exam. Electronically signed by: Asim wood/analilia:02/27/2024 11:22:38 Wellness Educator(s): RT Johan(R)(M), [facility] letter sent: Normal Exam Reading location: [facility] BI-RADS: 1 Negative Procedure Note Asim Thomas MD - 02/27/2024 - KALANI SCREENING BILATERAL DIGITAL W CAD W ROMEL BILATERAL DIGITAL SCREENING MAMMOGRAM 3D/2D WITH CAD WITH MEDIOLATERAL OBLIQUE CRANIOCAUDAL: 02/25/2024 The study was acquired using digital technology and interpreted from soft copy. Current study was also evaluated with ICAD version 7.2. 2D digital mammographic views, as well as 3D digital tomosynthesis were performed in the CC and MLO projections. CLINICAL: Routine screening. Patient has no complaints. No personal history of cancer. No family history of breast cancer. COMPARISONS: Comparison is made to exams dated: 10/28/2021, 05/30/2020, and 04/17/2019 [facility]. BREAST TISSUE:The tissue of both breasts is heterogeneously dense. This may lower the sensitivity of mammography. FINDINGS: No significant masses, calcifications, or other findings are seen in either breast. There has been no significant interval change. IMPRESSION: BI-RAD 1 NEGATIVE There is no mammographic evidence of malignancy. A 1 year screening mammogram is recommended. A letter will be sent to the patient with these results. The patient will be entered into a reminder system with a target due date of 1 year for her next screening exam. Electronically signed by: Asim wood/analilia:02/27/2024 11:22:38 Wellness Educator(s): Christelle Bajwa RT(R)(M), [facility] letter sent: Normal Exam Reading location: [facility] BI-RADS: 1 Negative us Rony Henderson MD IMG MAMMO ORDERABLES Final Resu lt * HM COLONOSCOPY (08/23/2014) us Chaim Colon MD PROCEDURE/MINOR SURGICAL ORDERABLES Final Result from Last 3 Months or Most Recently Relevant to Health Maintenance Insurance [facility] Member Subscriber Plan / Payer ( fective 2019-Present) Name:Wendi Richmond Relation to Subscriber:Self Name:Wendi Richmond Payer ID:[id number] Group ID:[id number] Type:Not on file Address: [address] GENERIC Care Teams Linen Room Attendant Relationship Specialty Start Date End Date Tiff Garcia MD [address] [place] [address] PCP - General Family Medicine 10/28/21 Monae Lee MD Consulting Physician Urology 10/06/15 Matthew Brown DPM Consulting Physician Podiatry 10/25/16 Lauren Ramey MD Obstetrics & Gynecology 04/09/19
[2024-11-22 19:46] LABS: Basophils Percent Auto 0.7 % (0.2-1.2); Eosinophils Absolute Auto 0.1 K/mm3 (0-0.3); Eosinophils Percent Auto 2.7 % (0-4.4); Hematocrit 40.9 % (37.0-47.0); Immature Granulocyte Absolute 0.01 K/mm3 (0.00-0.031); Immature Granulocyte Percent A 0.2 % (0-0.5); Lymphocytes Absolute Auto 1.96 K/mm3 (0.9-3.2); Mean Corpuscular HGB Conc 31.8 g/dl (32-36); Mean Corpuscular Volume 94.2 fl (80-100); Mean Platelet Volume 9.7 fl (7.4-10.4); Monocytes Absolute Auto 0.4 K/mm3 (0.1-0.6); Neutrophils Absolute Auto 1.6 K/mm3 (1.3-6.7); Neutrophils Percent Auto 38.4 % (45.5-73.1); Platelet Count Result 269 k/mm3 (150-375); Red Blood Count 4.34 M/mm3 (4.2-5.4); Red Cell Distribution Width 13.2 % (11.5-14.5); White Blood Count 4.1 K/mm3 (4.5-10.0)
[2024-11-22 20:09] LABS: Alanine Aminotransferase 17 U/L (6-35); Albumin Level 4.6 g/dL (3.5-5.1); Alkaline Phosphatase 75 U/L (38-126); Anion Gap 8 mmol/L (4-12); Aspartate Amino Transferase 60 U/L (14-36); Bilirubin,Total 0.8 mg/dL (0.2-1.3); Blood Urea Nitrogen 11 mg/dL (7-17); Calcium 9.5 mg/dL (8.4-10.2); Carbon Dioxide 25 mmol/L (22-30); Chloride 105 mmol/L (98-107); Cholesterol 272 mg/dL (0-200); Estimated Glomerular Filt Rate > 60; Glucose 87 mg/dL (65-110); HDL Direct 71 mg/dL; Magnesium 2.1 mg/dL (1.6-2.3); Potassium 4.4 mmol/L (3.4-5.0); Sodium 138 mmol/L (137-145); Triglycerides 76 mg/dL (<150)
[2024-11-22 20:20] LABS: LDL Cholesterol Direct 128 mg/dL
[2024-11-22 20:31] LABS: Vitamin D 25 Hydroxy 38.6 ng/mL
[2024-11-22 20:51] LABS: Hemoglobin A1C 5.4 % (<5.7)
[2024-11-26 13:18] LABS: Apolipoprotein B 114 mg/dL
== END 2024-11-22 11:36 | disposition home or self-care (01) ==
LOC: ANHBWCLAB 11:36
PROVIDERS: PCP Family Medicine; Visit Provider Family Medicine
DX: E78.5 Hyperlipidemia, unspecified (principal); R73.03 Prediabetes; E66.9 Obesity, unspecified; R74.01 Elevation of levels of liver transaminase levels; D64.9 Anemia, unspecified; G47.30 Sleep apnea, unspecified; Z00.00 Encounter for general adult medical examination without abnormal findings
CPT/HCPCS: 36415; 80053; 80061; 82172; 82306; 82607; 83036; 83735; 85025